=== PATIENT | male | born 1955 | race Hispanic/Latino ===

== ENCOUNTER → 2017-09-25 | Outpatient (CLI) | payer SELFPAY | LOC: LAB.O 09:33 | DX: E11.9 Type 2 diabetes mellitus without complications (principal) ==

== ENCOUNTER 2019-06-22 | Emergency (ER) | payer SELFPAY ==
[2019-06-22] MEDS: FUROSEMIDE INJ 20 MG/2 ML VIAL IV ONE ×2 (00:18→01:26)
[2019-06-22] MEDS: SODIUM CHLORIDE 0.9% (FLUSH) 10 ML SYG IV PRN (00:18)
[2019-06-22] MEDS ORDERED: NITROGLYCERIN 0.4 MG 25 EA TAB SL ONE (00:34)
[2019-06-22] MEDS: NITROGLYCERIN 0.4 MG 25 EA TAB SL ONE ×2 (00:41→01:25)
--- NOTE | 2019-06-22 00:42 | RAD ---
EXAM DESCRIPTION: Chest,1 View CLINICAL HISTORY: 63 years Male sob COMPARISON: October 17, 2014. TECHNIQUE: AP view of the chest was obtained. FINDINGS: Cardiac silhouette is enlarged. Central vessels are increased and indistinct. Interstitial and airspace opacities lung gong bilaterally increased when correlated with the prior study. Small right pleural effusion. No effusion on left. No pneumothorax. IMPRESSION: Enlarged heart with marked pulmonary congestion. Bilateral infiltrates versus pulmonary congestion and interstitial edema. These findings are increased when correlated with the prior study. Electronically signed by: Ingris Reynolds MD 06/22/2019 12:[address] [facility]
--- NOTE | 2019-06-22 01:04 | ED.PDOC ---
History of Present Illness - General Chief Complaint: Respiratory Problem Stated Complaint: trouble breathing, gasping Time Seen by Provider: 06/22/19 00:05 Source: patient - History of Present Illness Initial Comments: 63 yo M who presents for SOB, onset 2 months ago mainly occurring at night when laying flat, however tonight acutely worsened. Pt has hx of DM and HTN, noncompliant for two years. Edema in BLE has been slowly worsening since onset of SOB. Denies f/c, cough, congestion, CP, abd pain, n/v/d, urinary sx. No hx of [place], CHF, COPD. Allergies/Adverse Reactions: Allergies NO KNOWN ALLERGY Allergy (Verified 10/17/14 03:51) Home Medications: Ambulatory Orders Ciprofloxacin [Cipro] 500 mg PO BID #14 tab 12/21/14 Review of Systems - Review of Systems Constitutional: Denies: chills, fever EENTM: States: no symptoms reported Respiratory: States: orthopnea, short of breath. Denies: cough Cardiology: States: edema. Denies: chest pain, palpitations, syncope Gastrointestinal/Abdominal: Denies: abdominal pain, diarrhea, nausea, vomiting Genitourinary: Denies: dysuria, frequency, hematuria Musculoskeletal: Denies: back pain, neck pain Skin: Denies: lesions, rash Neurological: Denies: headache, numbness, weakness Endocrine: Denies: increased thirst, increased urine Hematologic/Lymphatic: Denies: easy bleeding, easy bruising Past Medical History (General) - Patient Medical History Hx Stroke: Yes - about 6months ago, sx, but not dx Hx Congestive Heart Failure: No Hx Hypertension: Yes Hx Diabetes: Yes - not taking meds Hx Renal Disease: Yes - kidney stones Surgical History: no surgical history - Vaccination History Hx Tetanus, Diphtheria Vaccination: No Hx Influenza Vaccination: No Hx Pneumococcal Vaccination: No - Social History Hx Tobacco Use: Yes Hx Alcohol Use: Yes - former Hx Substance Use: No Hx Substance Use Treatment: No Hx Depression: No - Triage Comment ED Triage Comment: Pt came in gasping, trying to breath. Pt is french speaking. Pt spouse reports pt suddenly started gasping for air, he woke her up stating "take me to " Pt could barely speak. Pt reports he has been getting increasingly short of breaths over past few months. Pt reports abd swelling started about a month ago. Pt spouse states pt has not been able to sleep at not, get short of breath when he lays down. Pt is a diabetic, and has HTN, hx kidney stones. Pt has not been taking medications x2 years now. Family Medical History - Family History Mother Family History: Unknown Physical Exam - Physical Exam General Appearance: Alert, Obvious distress, Other - Breathing throgh pursed lips Eyes, Ears, Nose, Throat Exam: PERRL/EOMI, normal ENT inspection Neck: full range of motion, supple Respiratory: respiratory distress, accessory muscle use, rhonchi, other - tachypnea Cardiovascular/Chest: normal peripheral pulses, regular rate, rhythm, no gallop, no murmur, tachycardia Peripheral Pulses: radial,right: 2+, radial,left: 2+ Gastrointestinal/Abdominal: non tender, soft, no organomegaly, no pulsatile mass Extremity: normal range of motion, non-tender, pedal edema - 2+ pitting edema, symmetric BLE Neurologic: no motor/sensory deficits, alert, normal mood/affect, oriented x 3 Skin Exam: normal color, warm/dry Lymphatic: no adenopathy Progress - Progress Progress: 06/22/19 01:10 Discussed with pt and family results and need for transfer, they agree with plan, all questions and concerns addressed. Discussed with Dr. Rushing at [facility] ED, accepts for transfer. Pt is currently doing well on bipap, BP still elevated after one nitro, will give another dose, if needed will escalate to nitro drip. Will also give another 20mg of lasix IV, in addition to 20mg lasix IV pt has already received. Doubt sepsis, sx consistent with volume overload, now in setting of ELTON. Will treat hyperglycemia with insulin. HTN unresolved with second nitro, will start on nitro drip. Nelly Kerr MD Emergency Medicine Physician Billing Number [id number] - Results/Orders Results/Orders: Laboratory Results - last 24 hr 06/22/19 06/22/19 06/22/19 00:20 00:20 00:20 WBC 7.8 RBC 5.09 Hgb 14.2 Hct 41.8 L MCV 82.0 MCH 28.0 MCHC 34.1 RDW 13.5 Plt Count 215 MPV 9.6 Absolute Neuts (auto) 3.90 Absolute Lymphs (auto) 3.00 Absolute Monos (auto) 0.50 Absolute Eos (auto) 0.40 Absolute Basos (auto) 0.00 Neutrophils % 50.1 Lymphocytes % 38.0 Monocytes % 6.5 Eosinophils % 4.8 Basophils % 0.6 PT INR PTT (SP) Sodium 128 L Potassium 3.2 L Chloride 94 L Carbon Dioxide 20 L Anion Gap 17.2 BUN 32 H Creatinine 2.12 H BUN/Creatinine Ratio 15.1 Random Glucose 494 H* Serum Osmolality 285.8 Lactic Acid Calcium 8.6 Total Bilirubin 0.4 AST 52 H ALT 38 Alkaline Phosphatase 139 H Troponin I 0.03 B-Natriuretic Peptide 1860.0 H* Serum Total Protein 7.3 Albumin 3.3 Globulin 4.0 H Albumin/Globulin Ratio 0.8 L Urine Color Urine Appearance Urine pH Ur Specific Jackson Urine Protein Urine Glucose (UA) Urine Ketones Urine Blood Urine Nitrite Urine Bilirubin Urine Urobilinogen Ur Leukocyte Esterase Urine RBC Urine WBC Ur Epithelial Cells Urine Bacteria 06/22/19 06/22/19 06/22/19 00:20 00:20 00:50 WBC RBC Hgb Hct MCV MCH MCHC RDW Plt Count MPV Absolute Neuts (auto) Absolute Lymphs (auto) Absolute Monos (auto) Absolute Eos (auto) Absolute Basos (auto) Neutrophils % Lymphocytes % Monocytes % Eosinophils % Basophils % PT 10.9 INR 1.09 PTT (SP) 24.2 Sodium Potassium Chloride Carbon Dioxide Anion Gap BUN Creatinine BUN/Creatinine Ratio Random Glucose Serum Osmolality Lactic Acid 2.4 H* Calcium Total Bilirubin AST ALT Alkaline Phosphatase Troponin I B-Natriuretic Peptide Serum Total Protein Albumin Globulin Albumin/Globulin Ratio Urine Color Yellow Urine Appearance Clear Urine pH 6.5 Ur Specific Jackson 1.020 Urine Protein >=300 H Urine Glucose (UA) 500 H Urine Ketones Negative Urine Blood Small H Urine Nitrite Negative Urine Bilirubin Negative Urine Urobilinogen 0.2 Ur Leukocyte Esterase Negative Urine RBC 1-3 Urine WBC 0-1 Ur Epithelial Cells 1-3 Urine Bacteria Rare CXR: EXAM DESCRIPTION: Chest,1 View CLINICAL HISTORY: 63 years Male sob COMPARISON: October 17, 2014. TECHNIQUE: AP view of the chest was obtained. FINDINGS: Cardiac silhouette is enlarged. Central vessels are increased and indistinct. Interstitial and airspace opacities lung gong bilaterally increased when correlated with the prior study. Small right pleural effusion. No effusion on left. No pneumothorax. IMPRESSION: Enlarged heart with marked pulmonary congestion. Bilateral infiltrates versus pulmonary congestion and interstitial edema. These findings are increased when correlated with the prior study. Electronically signed by: Ingris Reynolds MD 06/22/2019 12:40 AM [employer]INE [employer] Vital Signs - 24 hr 06/22/19 06/22/19 06/22/19 00:06 00:10 00:15 Temperature 97.4 F L Pulse Rate [ 98 H 115 H left] Respiratory 28 H 28 H 8 L Rate Blood Pressure 271/145 [left] O2 Sat by Pulse 81 L Oximetry 06/22/19 06/22/19 06/22/19 00:16 00:30 01:00 Temperature 97.4 F L Pulse Rate [ 98 H 93 H 88 left] Respiratory 8 L 8 L 20 Rate Blood Pressure 218/119 220/115 200/107 [left] O2 Sat by Pulse 98 98 96 Oximetry 06/22/19 01:12 Temperature Pulse Rate [ 90 left] Respiratory 20 Rate Blood Pressure 219/112 [left] O2 Sat by Pulse 98 Oximetry - EKG/XRAY/CT EKG: Sinus, Tachy, nonspecific ST T wave Chg Comments: nonspecific intraventricular block Departure - Departure Clinical Impression: ELTON (acute kidney injury), Acute respiratory distress, Hyperglycemia Volume overload Qualifiers: Hypervolemia type: unspecified Qualified Code(s): E87.70 - Fluid overload, unspecified Time of Disposition: 01:09 Disposition: Transfer to Hospital Condition: Fair Home Medications: Ambulatory Orders Ciprofloxacin [Cipro] 500 mg PO BID #14 tab 12/21/14
[2019-06-22] MEDS ORDERED: NITROGLYCERIN/D5W IV 250 ML IVS ONE (01:37)
[2019-06-22] MEDS: INSULIN, REG.(HUMAN) 100 U/ML VIAL IV ONE (01:39)
[2019-06-22] MEDS: NITROGLYCERIN/D5W IV 50,000 MCG in PREMIX BOTTLE 1 BOTTLE IVS SCH (01:40)
[2019-06-22 01:43] VITALS: TEMP 97.8
[2019-06-22 02:22] VITALS: BP 207/104; O2SAT 99
== END 2019-06-22 02:23 | disposition short-term general hospital (02) ==
LOC: ER
DX: R06.03 Acute respiratory distress (principal); N17.9 Acute kidney failure, unspecified; E87.70 Fluid overload, unspecified; I45.4 Nonspecific intraventricular block; R00.0 Tachycardia, unspecified; E11.65 Type 2 diabetes mellitus with hyperglycemia; I51.7 Cardiomegaly; I10 Essential (primary) hypertension; Z87.442 Personal history of urinary calculi; Z87.891 Personal history of nicotine dependence
CPT/HCPCS: 36600; 71045; 80053; 81001; 82803; 83605; 83880; 84484; 85025; 85610; 85730; 87040; 87077; 87186; 87205; 93005; 94660; J1940

== ENCOUNTER → 2019-08-04 | Outpatient (CLI) | payer SELFPAY | LOC: YCFC.O 16:17 | PROVIDERS: ATTEND Nurse Practitioner | DX: I10 Essential (primary) hypertension (principal); R53.83 Other fatigue ==

== ENCOUNTER → 2019-09-23 | Outpatient (CLI) | payer SELFPAY | LOC: LAB.O 09-15 14:43 → YCFC.O 15:30 | PROVIDERS: ATTEND Nurse Practitioner | DX: E11.65 Type 2 diabetes mellitus with hyperglycemia (principal); I10 Essential (primary) hypertension ==

== ENCOUNTER → 2019-10-18 | Outpatient (CLI) | payer SELFPAY | DX: N18.4 Chronic kidney disease, stage 4 (severe) (principal) ==

== ENCOUNTER → 2019-12-16 | Outpatient (CLI) | payer SELFPAY | LOC: YCFC.O 13:58 | PROVIDERS: ATTEND Family Medicine | DX: E11.65 Type 2 diabetes mellitus with hyperglycemia (principal); N18.9 Chronic kidney disease, unspecified; D64.9 Anemia, unspecified ==

== ENCOUNTER 2020-05-24 19:52 | Inpatient (IN) | payer SELFPAY ==
[2020-05-24] MEDS ORDERED: MORPHINE SULFATE INJ 10 MG/ML VIAL IV ONE (20:51)
--- NOTE | 2020-05-24 20:53 | RAD ---
EXAM: Chest,1 View CLINICAL INDICATION: Hypoxia COMPARISON: 06/22/2019 FINDINGS: A single view of the chest was obtained. The heart size is mildly enlarged. The pulmonary vascularity is mildly prominent. There are small bilateral pleural effusions and mild bibasilar atelectasis. The lungs are otherwise clear. There is no pneumothorax. IMPRESSION: Findings consistent with mild CHF. Small bilateral pleural effusions. Electronically signed by: Doyle Pascal MD 05/24/2020 8:51 PM CDT
[2020-05-24] MEDS ORDERED: FUROSEMIDE INJ 40 MG/4 ML VIAL IV ONE (21:08)
--- NOTE | 2020-05-24 21:48 | CT ---
EXAM: Chest w/o Contrast CLINICAL INDICATION: Shortness of breath COMPARISON: There is no previous study for comparison. TECHNIQUE: The CT scan was done using contiguous axial 5 mm noncontrast sections through the chest. This exam was performed according to our departmental dose-optimization program, which includes automated exposure control, adjustment of the mA and/or kV according to patient size and/or use of iterative reconstruction technique. FINDINGS: There are no enlarged mediastinal or hilar lymph nodes. Moderate bilateral pleural effusions are noted larger on the right than on the left. Visualized portions of the upper abdominal structures reveal tiny gallstones in the gallbladder, but otherwise are unremarkable. There is moderate dependent atelectasis in both lower lobes greater on the right than on the left as well as mild atelectasis in the right middle lobe. Underlying pneumonia cannot be excluded. A small patch of infiltrate is seen in the peripheral left upper lobe. There is no pneumothorax. IMPRESSION: 1. Moderate bilateral pleural effusions. 2. Areas of airspace opacity in both lungs which may indicate atelectasis and/or pneumonia. 3. Incidentally noted cholelithiasis. Electronically signed by: Doyle Pascal MD 05/24/2020 9:46 PM CDT
[2020-05-24] MEDS ORDERED: METOPROLOL TARTRATE 50 MG TAB PO ONE (22:05)
[2020-05-24] MEDS ORDERED: ISOSORBIDE MONONITRATE (IMDUR) 30 MG TAB PO ONE (22:06)
[2020-05-24] MEDS ORDERED: cefTRIAXone SODIUM 1 GM in SODIUM CHL 0.9% 50ML MIN-BAG+ 50 ML IVPB ONE (22:34)
[2020-05-24] MEDS ORDERED: AZITHROMYCIN IV 500 MG in SODIUM CHLORIDE 0.9% 250ML 250 ML IVPB ONE (22:34)
[2020-05-24] MEDS ORDERED: IPRATROPIUM/ALBUTEROL 3 ML VIAL NEB ONE (22:35)
--- NOTE | 2020-05-24 22:44 | ED.PDOC ---
History of Present Illness - General Chief Complaint: Respiratory Problem Stated Complaint: short of breath, 3-4wks Time Seen by Provider: 05/24/20 19:55 Source: patient Exam Limitations: no limitations - History of Present Illness Initial Comments: The patient is a 64-year-old male presented emergency room secondary to progressive shortness of breath over the last 3 weeks. Mildly productive cough. No definite fever. No chest pain. He is unable to lie back flat and breathes. He shows significant increased work of breathing. Oxygen saturation upon arrival without oxygen was 78%. He denies any history of COPD but does apparently have a history of CHF as well as chronic renal insufficiency. He is also an insulin-dependent diabetic and has had 1 amputation in the past. The patient has apparently seen Dr. Noland in the past for his renal insufficiency. No syncope. No palpitations. Again no chest pain. It is essentially shortness of breath. No runny nose or sore throat. Timing/Duration: constant, getting worse Severity: severe Improving Factors: immobilization Worsening Factors: movement Associated Symptoms: cough, malaise, shortness of breath, weakness Allergies/Adverse Reactions: Allergies NO KNOWN ALLERGY Allergy (Verified 10/17/14 03:51) Home Medications: Ambulatory Orders Amlodipine Benzoate 05/24/20 Amlodipine Besylate 10 mg PO DAILY 05/24/20 Carvedilol 12.5 mg PO BID 05/24/20 Human Insulin Aspart [Novolog] 100 unit SC DAILY 05/24/20 Insulin Detemir [Levemir] 0 unit SUBCU DAILY 05/24/20 Simvastatin 20 mg PO DAILY 05/24/20 Review of Systems - Review of Systems Constitutional: States: malaise EENTM: States: no symptoms reported Respiratory: States: cough, short of breath, wheezing Cardiology: States: no symptoms reported Gastrointestinal/Abdominal: States: no symptoms reported Genitourinary: States: no symptoms reported Musculoskeletal: States: no symptoms reported Skin: States: no symptoms reported Neurological: States: anxiety Endocrine: States: no symptoms reported All other Systems: No Change from Baseline Past Medical History (General) - Patient Medical History Hx Stroke: Yes - about 6months ago, sx, but not dx Hx Congestive Heart Failure: Yes - per pt description "fluid around heart" Hx Hypertension: Yes Hx Diabetes: Yes Hx Renal Disease: Yes - kidney stones Surgical History: other - Vaccination History Hx Tetanus, Diphtheria Vaccination: No Hx Influenza Vaccination: Yes Hx Pneumococcal Vaccination: No - Social History Hx Tobacco Use: Yes Hx Alcohol Use: No Hx Substance Use: No Hx Substance Use Treatment: No Hx Depression: No Family Medical History - Family History Mother Family History: Unknown Physical Exam - Physical Exam General Appearance: Alert, Other - The patient is obviously in acute respiratory distress upon arrival. Eye Exam: bilateral normal Ears, Nose, Throat: hearing grossly normal, normal pharynx, other - Nasal flaring Neck: full range of motion, supple - JVD is visible Respiratory: respiratory distress, accessory muscle use, rhonchi, wheezing Cardiovascular/Chest: normal peripheral pulses, regular rate, rhythm, no edema Peripheral Pulses: radial,right: 2+, radial,left: 2+ Gastrointestinal/Abdominal: soft, other - Protuberant abdomen. Suspect at least a small amount of ascites. No rebound or peritoneal signs. 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, alert, normal mood/affect - The patient is obviously anxious, oriented x 3, other - Patient does have chronic peripheral neuropathy Skin Exam: normal color Comments: Vital Signs - 24 hr 05/24/20 05/24/20 05/24/20 20:00 20:20 20:50 Temperature 97.7 F Pulse Rate 80 Pulse Rate [ 85 72 81 left] Respiratory 34 H 30 H 28 H Rate Blood Pressure 180/92 175/106 [Right Arm] O2 Sat by Pulse 83 L 92 L Oximetry 05/24/20 05/24/20 21:00 22:29 Temperature Pulse Rate Pulse Rate [ 83 77 left] Respiratory 20 20 Rate Blood Pressure 189/85 176/79 [Right Arm] O2 Sat by Pulse 92 L 96 Oximetry Progress - Progress Progress: 05/24/20 22:47 The patient is a 64-year-old male presented emergency room in respiratory distress secondary to what is most likely primarily a CHF exacerbation with possible underlying pneumonia. The patient is an insulin- dependent diabetic and does have chronic renal insufficiency. He will have to be diuresed carefully. Due to the respiratory distress, the decision was made to perform a thoracentesis on the larger right pleural effusion. Risk and benefits were explained and patient agreed to proceed. Area was prepped with chlorhexidine and the sheath catheter was entered into the intercostal space after auscultation. We obtained about 80 cc through the syringe however the catheter failed to allow withdrawal of any more fluid. The catheter was removed and an 18-gauge needle was inserted which did allow for drainage of the serous fluid in total but approximately 1000 cc which will be sent for cytology and culture. Vaseline gauze was placed at the site followed by sponge tape. Patient tolerated procedure well and is breathing more easily afterwards. Chest x-ray will will be repeated in 1/2-hour. Blood and sputum cultures are being done. The patient is being started on Rocephin and azithromycin. He is also receiving a nebulizer treatment. Due to the continued hypotension the patient received doses of oral metoprolol and oral Imdur. Blood pressures are already coming down. The patient does have an elevated D-dimer however that is most likely due to the renal insufficiency. Echocardiogram on the patient in the near future may be beneficial. Admitting for continued care of the CHF ex acerbation and pneumonia. The patient tested negative for coronavirus. Critical care time spent on this patient is 40 minutes. clyde william [id number] - Results/Orders Results/Orders: Chest x-ray shows bilateral effusions as well as cephalization and cardiomegaly. CT scan corresponds with the above x-ray. He does have moderate to large effusions with the 1 on the right greater than the left. Possible underlying infiltrates. EKG shows normal sinus rhythm 83 bpm. Normal R wave progression. Right bundle branch block. Mild right axis deviation. Prolonged QT interval. Likely left posterior fascicular block as well. Inverted T waves and inferior leads. Laboratory Tests 05/24/20 05/24/20 05/24/20 20:20 20:20 20:20 WBC 7.3 RBC 3.99 L Hgb 10.8 L Hct 31.9 L MCV 80.0 MCH 27.0 MCHC 33.7 RDW 17.6 H Plt Count 233 MPV 8.9 Absolute Neuts (auto) 5.60 Absolute Lymphs (auto) 0.90 L Absolute Monos (auto) 0.60 Absolute Eos (auto) 0.20 Absolute Basos (auto) 0.00 Neutrophils % 77.1 Lymphocytes % 12.0 L Monocytes % 7.5 Eosinophils % 3.0 Basophils % 0.4 PT 12.8 H INR 1.29 H PTT (SP) 28.8 D-Dimer, Quantitative 1360.0 H* pCO2 pO2 HCO3 ABG pH ABG O2 Saturation ABG Base Excess ABG Deoxyhemoglobin Oxyhemoglobin % Carboxyhemoglobin % Methemoglobin % Sat Calc Total Hemoglobin Sodium 137 Potassium 4.6 Chloride 107 Carbon Dioxide 21 Anion Gap 13.6 BUN 39 H Creatinine 3.00 H BUN/Creatinine Ratio 13.0 Random Glucose 165 H Serum Osmolality 286.9 Lactic Acid Calcium 8.2 L Magnesium 2.5 Total Bilirubin 0.6 AST 22 ALT 19 Alkaline Phosphatase 93 Creatine Kinase 160 CK-MB (CK-2) 6.5 H* CK-MB (CK-2) % Not Reportable Troponin I < 0.02 B-Natriuretic Peptide 4130.0 H* Serum Total Protein 7.8 Albumin 3.4 Globulin 4.4 H Albumin/Globulin Ratio 0.8 L Amylase 34 Lipase 26 TSH 1.43 05/24/20 05/24/20 20:20 20:36 WBC RBC Hgb Hct MCV MCH MCHC RDW Plt Count MPV Absolute Neuts (auto) Absolute Lymphs (auto) Absolute Monos (auto) Absolute Eos (auto) Absolute Basos (auto) Neutrophils % Lymphocytes % Monocytes % Eosinophils % Basophils % PT INR PTT (SP) D-Dimer, Quantitative pCO2 43 pO2 69 L HCO3 22.2 ABG pH 7.318 L ABG O2 Saturation 92.7 L ABG Base Excess -3.8 ABG Deoxyhemoglobin 7.1 H Oxyhemoglobin % 90.6 L Carboxyhemoglobin % 1.6 H Methemoglobin % Sat 0.7 Calc Total Hemoglobin 10.5 L Sodium Potassium Chloride Carbon Dioxide Anion Gap BUN Creatinine BUN/Creatinine Ratio Random Glucose Serum Osmolality Lactic Acid 0.9 Calcium Magnesium Total Bilirubin AST ALT Alkaline Phosphatase Creatine Kinase CK-MB (CK-2) CK-MB (CK-2) % Troponin I B-Natriuretic Peptide Serum Total Protein Albumin Globulin Albumin/Globulin Ratio Amylase Lipase TSH Departure - Departure Clinical Impression: Multifocal pneumonia, Respiratory distress, Chronic renal failure, stage 4 (severe) Acute exacerbation of CHF (congestive heart failure) Qualifiers: Heart failure type: unspecified Qualified Code(s): I50.9 - Heart failure, unspecified Disposition: Admit Patient Departure Forms: ED Discharge - Pt. Copy, Patient Portal Self Enrollment Referrals: Elisabeth Pettit FNP [Primary Care Provider] - 1-2 Weeks Home Medications: Ambulatory Orders Amlodipine Benzoate 05/24/20 Amlodipine Besylate 10 mg PO DAILY 05/24/20 Carvedilol 12.5 mg PO BID 05/24/20 Human Insulin Aspart [Novolog] 100 unit SC DAILY 05/24/20 Insulin Detemir [Levemir] 0 unit SUBCU DAILY 05/24/20 Simvastatin 20 mg PO DAILY 05/24/20 Decision To Admit - Decistion To Admit Decision to Admit Reason: Medical Nature Decision to Admit Date: 05/24/20 Decision to Admit Time: 22:51
--- NOTE | 2020-05-25 00:12 | RAD ---
EXAMINATION: Chest,1 View CLINICAL HISTORY: post thoracentesis on right COMPARISON: May 24, 2020 8:25 PM FINDINGS: The heart size is again seen to be mildly enlarged however unchanged. Again seen is mild prominence of the pulmonary vasculature. There are small bilateral pleural effusions significantly decreased on the right presumably secondary to the reported history of recent thoracentesis.. IMPRESSION: Decreased right pleural effusion. Otherwise no significant change. Electronically signed by: Margret Brunson MD 05/25/2020 12:10 AM CDT
[2020-05-25] MEDS ORDERED: SODIUM CHLORIDE 0.9% (FLUSH) 10 ML SYG IV PRN (00:38)
[2020-05-25] MEDS ORDERED: GLUCAGON INJ 1 MG VIAL SUBCU PRN (00:38)
[2020-05-25] MEDS ORDERED: MAGNESIUM HYDROXIDE 30 ML UD PO PRN (00:38)
[2020-05-25] MEDS ORDERED: DEXTROSE 50% 25 GM/50 ML SYG IV PRN (00:38)
[2020-05-25] MEDS ORDERED: ONDANSETRON INJ 4 MG/2 ML VIAL IV PRN (00:38)
[2020-05-25] MEDS ORDERED: MORPHINE SULFATE INJ 10 MG/ML VIAL IV PRN (00:38)
[2020-05-25] MEDS ORDERED: ALBUTEROL SULFATE 2.5 MG/3 ML VIAL NEB PRN (00:38)
[2020-05-25] MEDS ORDERED: NITROGLYCERIN 0.4 MG 25 EA TAB SL PRN (00:38)
[2020-05-25] MEDS ORDERED: ENOXAPARIN SODIUM 80 MG/0.8 ML SYG SUBCU ONE (00:46)
[2020-05-25] MEDS: IV SET AND CAP CHANGE INJ INJ SCH (01:01)
--- NOTE | 2020-05-25 06:34 | RAD ---
EXAM: XR Chest, 1 View CLINICAL HISTORY: The patient is 64 years old and is Male; chf w/ plueral effusion, possible PNA TECHNIQUE: Single view of the chest. COMPARISON: May 24, 2020 11:49 PM. FINDINGS: Lungs: Bibasilar infiltrates and/or subsegmental atelectasis again noted. Pleural space: 8 to 9 mm right apical pneumothorax. No significant pleural fluid. Heart: The cardiac silhouette is enlarged versus artifact of AP technique. Cardiomediastinal silhouette is not significantly changed given the differences in technique. Mediastinum: See above. Bones/joints: The bones and joints are unchanged as visualized. Upper abdomen: No free air in the visualized upper abdomen. IMPRESSION: 1. 8 to 9 mm right apical pneumothorax. 2. Bibasilar infiltrates and/or subsegmental atelectasis again noted. Electronically signed by: Odessa Ayala MD 05/25/2020 6:32 AM CDT
[2020-05-25] MEDS: INSULIN LISPRO 100 UNITS/ML PEN SUBCU SCH ×4 (07:22→21:21)
[2020-05-25] MEDS ORDERED: amLODIPine BESYLATE 5 MG TAB ONE (08:45)
[2020-05-25] MEDS ORDERED: SIMVASTATIN 20 MG TAB ONE ×2 (08:45→18:51)
[2020-05-25] MEDS: ALBUTEROL SULFATE 2.5 MG/3 ML VIAL NEB SCH ×4 (09:30→20:06)
[2020-05-25] MEDS: amLODIPine BESYLATE 5 MG TAB PO SCH (09:38)
[2020-05-25] MEDS: CARVEDILOL 12.5 MG TAB PO SCH ×2 (09:38→20:32)
--- NOTE | 2020-05-25 10:27 | RAD ---
EXAM DESCRIPTION: Chest,2 Views CLINICAL HISTORY: f/u am xray fpr rt sided pneumo COMPARISON: Chest radiograph same date. TECHNIQUE: PA/lateral FINDINGS/IMPRESSION: The right apical pneumothorax may be stable to slightly increased in size (occupying approximately 10-15% right lung volume). No mediastinal shift to suggest tension pneumothorax. Small volume right sided pleural effusion has increased. Central pulmonary vascular congestion with suggestion of mild interstitial pulmonary edema. The heart is at the upper limits of normal in size. The aortic knob is partially calcified. No acute osseous abnormality. Electronically signed by: Abram Mulligan DO 05/25/2020 10:25 AM CDT
[2020-05-25] MEDS: FUROSEMIDE INJ 40 MG/4 ML VIAL IV SCH ×2 (10:54→17:18)
[2020-05-25] MEDS: NITROGLYCERIN 0.4 MG/HR PATCH TOP SCH (10:54)
--- NOTE | 2020-05-25 11:21 | HP ---
SUPERVISING PHYSICIAN: Mukul Tomas MD CHIEF COMPLAINT: Shortness of breath for 3 to 4 weeks. HISTORY OF PRESENT ILLNESS: Mr. Garcia is a 64 year-old male who presented to the Emergency Room last night for progressive shortness of breath over the last 3 weeks. He has also had a mildly productive cough but no definite fever, no actual chest pains. He endorses he is unable to lie flat on his back, this increases his shortness of breath. His initial oxygen saturation on arrival in in the Emergency Room was 78% and that is without oxygen. He denies any actual history of chronic obstructive pulmonary disease but apparently has been diagnosed with congestive heart failure as well as chronic renal failure and renal insufficiency in the past. He also has a significant history of diabetes mellitus type 2 with a recent amputation of his left lower extremity below the knee due to diabetic complications and a documentation ulcer. His initial workup in the Emergency Room showed he had a normal white count at 7,300 without a left shift. His hemoglobin 10.8, hematocrit 31.9. Coagulation studies did show D-dimer 1360. Blood gas analysis showed he had uncompensated respiratory acidosis with a pH of 7.31 with PC02 of 43, mild hypoxemia with P02 of 69. Bicarb 22. Oxygen saturations on 2 liter nasal cannula was 92%. Chemistries showed BNP elevated at 4130 but creatinine level was 3.0. Review of his past records show his creatinine runs around 2.5, BUN 39, troponin less than 0.02. TSH, lipase and amylase were normal. Liver enzymes were within normal limits. Chest x-ray initially in the Emergency Room showed bilateral pleural effusions. This was followed up with CT of the chest and per radiology interpretation showed moderate bilateral pleural effusions with some area of airspace opacities in both lungs which could indicate atelectasis and/or pneumonia with incidental finding of cholelithiasis. His respiratory swab for Covid-19 was negative as well as all other bacterial and viral targets. Vital signs in the Emergency Room initially showed his oxygen saturation 93% with respirations of 34, blood pressure 180/92, he was afebrile at 97.7 with pulse of 85. The findings clinically and CT findings of a pleural effusion on the right, Dr. Harrington, emergency room physician physician, performed a right-sided thoracentesis with resulting 1,000 cc pleural fluid that was noted to be serous in nature and was sent for cytology and cultures. After thoracentesis, the patient's respiratory effort was much decreased but given clinical findings and labs, the patient is going to be admitted now for management of possible congestive heart failure exacerbation with acute on chronic renal failure with possible underlying community acquired pneumonia bilaterally. The patient was started on antibiotics in the Emergency Room. His initial lactic acid was normal at 0.9, repeat prior to admission was 1.0. He was admitted in stable condition. PAST MEDICAL HISTORY: 1. Diabetes mellitus type 2, poorly controlled. 2. Hyperlipidemia. 3. Hypertension. 4. Congestive heart failure first diagnosed in 2018 with no current echocardiogram available at time of review. 5. Chronic renal failure diagnosed in 2019. 6. History of alcohol abuse. PAST SURGICAL HISTORY: 1. Left below-knee amputation in 2019. CURRENT MEDICATIONS: 1. Labetalol 12.5 mg b.i.d. 2. Amlodipine 10 mg daily. 3. Simvastatin 20 mg daily. 4. Levemir daily. 5. NovoLog sliding scale. ALLERGIES: NO KNOWN DRUG ALLERGIES. FAMILY HISTORY: Noncontributory. SOCIAL HISTORY: Past history of smoking but quit many years previous as well as has a history of alcohol abuse but has quit multiple years previous to admission. He is disabled. He is , he lives in [place]. He denied any illicit drug use. REVIEW OF SYSTEMS: CONSTITUTIONAL: Positive for general malaise, denies fevers, chills, HEENT: Denies headaches. vision changes, sore throat. nasal congestion. CHEST: As noted in history of present illness, significant for coughing,shortness of breath, wheezing. HEART: Denies actual chest pain, palpitations, or syncopal episodes. ABDOMEN: Denies nausea, vomiting, diarrhea or constipation. GENITOURINARY: Denies dysuria, hematuria or polyuria. MUSCULOSKELETAL: Denies arthralgias, joint swelling. SKIN: Denies lesions, rashes, moles or unexplained changes. NEUROLOGIC: He does have some anxiety but denies ataxia other than associated with recent amputation of his left lower extremity. No other focal or motor deficits. Denies seizures.. HEMATOLOGICAL: Denies unexplained bleeding, easy bruising or transfusion reactions. PHYSICAL EXAMINATION: VITAL SIGNS: Initially in the Emergency Room shows temperature 97.7, pulse 85, blood pressure 180/92, respirations 34 with oxygen saturation 82% on room air after thoracentesis. On admission to the medical/surgical floor, the patient's temperature was 97.8, pulse 73, blood pressure 137/77, respirations 20, oxygen saturation 99% on 4 liters nasal cannula. GENERAL: The patient on admission to the medical/surgical floor did not look to be in any obvious distress, was resting comfortably. He was alert. HEENT: Tympanic membranes are clear bilaterally. Oropharynx is pink, moist, without any lesions. NECK: Supple, nontender, full range of motion, no obvious jugular venous distention noted. CHEST: Lung sounds were diminished bilaterally towards the bases with some mild rhonchi heard throughout but no wheezing or rales. CARDIOVASCULAR: Regular rate and rhythm without appreciable murmurs, rubs, or gallops. ABDOMEN: Obese, soft, nontender, positive bowel sounds. RECTAL: Exam deferred. BACK: Without any CVA or vertebral tenderness. EXTREMITIES: Left lower extremity amputation. no other notable cyanosis or clubbing. NEUROLOGIC: Cranial nerves II through XII are grossly intact. Facial features were symmetrical. Extraocular movements within normal limits. There was no notable nystagmus. He was alert and oriented x 3. SKIN: Warm, pink and dry. LABORATORY: CBC showed a white count of 7,300 initially with hemoglobin 10.8, hematocrit 31.9, platelet count 233,000, differential showed to be without a left shift. Chemistries did show an elevated D-dimer of 1360 with PTT 12.8, INR 1.29. Blood gas analysis showed pH 7.318 with PC02 of 43, P02 of 69, bicarb 22, oxygen saturations on 3 liter nasal cannula was 92%. Chemistries showed normal electrolytes. Creatinine elevated at 3, BUN 39, potassium normal at 4.6. Lactic acid in the Emergency Room was 0.9, repeat 2 hours prior to admission was 1.0, calcium 8.2 corrected to 8.3 with albumin 3.4, magnesium 2.5. Liver functions within normal limits. Troponin less than 0.02, BNP elevated at 4130. TSH, lipase and amylase all normal. Urinalysis was pending. MICROBIOLOGY: Pleural fluid cultures pending. Blood cultures pending. Respiratory panel was normal for all bacterial and viral antigens as tested. RADIOLOGY: CT of the chest per radiology interpretation showed moderate bilateral pleural effusions with an area of airspace opacity in both lungs which could indicate atelectasis and/or pneumonia and with incidental noted finding of cholelithiasis. Repeat chest x-ray after initial thoracentesis in the Emergency Room showed decreased right pleural effusion, otherwise not significant changes. ASSESSMENT: 1. Acute on chronic congestive heart failure likely diastolic with a large pleural effusion, etiology uncertain at this point, pending echocardiogram with the patient status post thoracentesis. 2. Respiratory distress secondary to large pleural effusion showing improvement with initial thoracentesis. 3. Uncontrolled hypertension. 4. Uncontrolled diabetes mellitus type 2 and recent amputation of left below- knee amputation. 5. Elevated D-dimer, etiology uncertain, possibly related to underlying pleural effusion. 6. Acute on chronic renal failure, likely exacerbated by congestive heart failure. 7. Chronic obstructive pulmonary disease with exacerbation secondary to #1 and likely exacerbated as well by probable community acquired pneumonia. PLAN: The patient is going to be admitted for underlying treatment of pleural effusion, close monitoring for the thoracentesis to be sure he has no complications postprocedure. He also was started on antibiotics which will be continued for concerns for possibly developing community acquired pneumonia. He will be on Lovenox given he had a D-dimer that was elevated, not sure of etiology at this point but will go ahead and put him on 80 mg daily based off his renal function. I did talk to Dr. Noland, he agrees with starting him on some Lasix initially to see how he does with his creatinine and wait on echocardiogram findings. We will work to control his blood pressure and watch his I&Os closely as well as put him on fluid restriction of 1500 cc for 24 hours. I would anticipate his length of stay to be at least 2 to 3 days. He will be on sliding scale per insulin protocol. Until we can transition him to outpatient management, we will continue to monitor and treat as needed. [facility][id number] [facility]
[2020-05-25] MEDS ORDERED: cloNIDine HCL 0.1 MG TAB ONE (13:57)
[2020-05-25] MEDS ORDERED: cloNIDine HCL 0.1 MG TAB PO ONE (14:19)
--- NOTE | 2020-05-25 15:19 | CT ---
EXAM DESCRIPTION: Abdoment/Pelvis w/o Contrast CLINICAL HISTORY: 64 years Male, right side pleural effusion; cholelithiasis TECHNIQUE: This exam was performed according to our departmental dose-optimization program, which includes automated exposure control, adjustment of the mA and/or kV according to patient size and/or use of iterative reconstruction technique. COMPARISON: 12/21/2014 FINDINGS: Redemonstrated right-sided pneumothorax. Moderate bilateral pleural effusions with adjacent airspace disease. Evaluation limited by lack of intravenous contrast. The contours of the liver, gallbladder, spleen, pancreas and adrenal glands are unremarkable. Cholelithiasis. Normal renal contours. No hydronephrosis. No urolithiasis. Bladder wall thickening with perivesicular fat stranding. Scattered colonic diverticula without focal inflammatory change. No evidence of bowel obstruction. No findings to suggest appendicitis. Normal appendix. No adenopathy. No focal fluid collection. No free air. Normal caliber abdominal aorta. Moderate diffuse atherosclerotic disease. No acute or suspicious osseous abnormality. Scattered degenerative changes present. Bilateral L5 pars defects. IMPRESSION: 1. Redemonstrated small right pneumothorax. 2. Moderate bilateral pleural effusions with adjacent atelectasis/consolidation. 3. Cholelithiasis. 4. Bladder wall thickening with perivesicular fat stranding. Recommend correlation with urinalysis. Electronically signed by: Matt Villarreal MD 05/25/2020 3:17 PM CDT
[2020-05-25] MEDS ORDERED: AZITHROMYCIN IV 500 MG VIAL IVPB ONE (18:51)
[2020-05-25] MEDS ORDERED: SODIUM CHL 0.9% 50ML MIN-BAG+ 50 ML IVPB ONE (18:51)
[2020-05-25] MEDS ORDERED: SODIUM CHLORIDE 0.9% 250ML 250 ML ONE (18:51)
[2020-05-25] MEDS ORDERED: cefTRIAXone SODIUM 1 GM VIAL ONE (18:51)
[2020-05-25] MEDS: ENOXAPARIN SODIUM 80 MG/0.8 ML SYG SUBCU SCH (20:32)
[2020-05-25] MEDS: SIMVASTATIN 20 MG TAB PO SCH (20:32)
[2020-05-25] MEDS: cefTRIAXone SODIUM 1 GM in SODIUM CHL 0.9% 50ML MIN-BAG+ 50 ML IVPB SCH (20:32)
[2020-05-25] MEDS: REMOVE OLD PATCH TOP SCH (20:48)
[2020-05-25] MEDS: AZITHROMYCIN IV 500 MG in SODIUM CHLORIDE 0.9% 250ML 250 ML IVPB SCH (21:30)
--- NOTE | 2020-05-26 05:12 | RAD ---
EXAM DESCRIPTION: Chest,1 View CLINICAL HISTORY: f/u rt side pneumo COMPARISON: Chest x-ray 05/25/2020 FINDINGS: Cardiac silhouette is enlarged. There are diffuse pulmonary infiltrates bilaterally which may represent mild interstitial pulmonary edema. There is a trace/residual right apical pneumothorax which appears smaller compared to the prior exam. There is no acute osseous process visualized. IMPRESSION: Trace/residual right apical pneumothorax which appears smaller compared to the prior exam Diffuse pulmonary infiltrates bilaterally which may represent mild interstitial pulmonary edema. Electronically signed by: Nando Arenas MD 05/26/2020 5:11 AM CDT
[2020-05-26] MEDS: INSULIN LISPRO 100 UNITS/ML PEN SUBCU SCH ×4 (07:36→21:11)
--- NOTE | 2020-05-26 08:49 | CONS ---
CONSULTATION/FOLLOWUP NOTE DATE: 05/26/20 REASON FOR CONSULTATION: 1. FOLLOWUP FOR: PNEUMOTHORAX, POST THORACENTESIS. HISTORY OF PRESENT ILLNESS: The patient has been noted to have a pneumothorax approximately 15%, followup from yesterday showed slight increase, it could have been the angle of the film slightly but overnight the patient reportedly did well, slept well, he is on a nonrebreather. He is in no distress and feels comfortable. Repeat x-ray this morning shows slight decrease in the size of the pneumothorax. The patient is stable, otherwise initially has been treated and I will continue to follow. If the pneumothorax becomes more clinically, he could required a chest catheter. #[id number] [facility]
[2020-05-26] MEDS: ALBUTEROL SULFATE 2.5 MG/3 ML VIAL NEB SCH ×4 (09:02→19:43)
[2020-05-26] MEDS: amLODIPine BESYLATE 5 MG TAB PO SCH (09:54)
[2020-05-26] MEDS: NITROGLYCERIN 0.4 MG/HR PATCH TOP SCH (09:54)
[2020-05-26] MEDS: CARVEDILOL 12.5 MG TAB PO SCH ×2 (09:55→20:33)
[2020-05-26] MEDS: FUROSEMIDE INJ 40 MG/4 ML VIAL IV SCH ×2 (09:55→16:09)
--- NOTE | 2020-05-26 12:34 | PN ---
SUPERVISING [id number]: Mukul Tomas MD DATE: 05/26/20 SUBJECTIVE: The patient reported his breathing is much easier, he has had no chest pain. He notes he is a little sleepy but he has no other complaints. OBJECTIVE: VITAL SIGNS: Temperature 98.8,pulse 73, blood pressure 171/73, respirations 20, now oxygen saturation 97% on 2 liters nasal cannula. GENERAL: The patient looks to be resting comfortably, he is in no acute distress. HEART: Regular rate and rhythm. CHEST: Diminished toward the bases. I do not hear any rhonchi or rales today. He does have bilateral excursion of the chest wall, no crepitus. Posterior aspect on the right side, thoracentesis site looks to be having no complications. Dressing is clean and dry. ABDOMEN: Obese, soft, non-tender, positive bowel sounds. EXTREMITIES: No edema. NEUROLOGIC: He is alert and oriented x 3. LABORATORY: White count is at 4,800, hemoglobin is down a little bit to 8.7, hematocrit 26.0, platelet count 162,000, differential shows to be without a left shift. Chemistries show normal electrolytes. Creatinine is up a little bit to 3.32. BUN is up to 43, blood sugars range between 86 and 148. Urinalysis is still pending. RADIOLOGY: Abdominal/pelvic CT done yesterday showed again re-demonstrated right small plural pneumothorax and moderate bilateral pleural effusions with adjacent atelectasis and consolidation and again cholelithiasis. No mention of any complications in the gallbladder. Bladder was noted to be thickening with perivesicular fat stranding, Chest x-ray today single-view, shows trace residual right apical pneumothorax which appears smaller compared to previous exam. There is diffuse pulmonary infiltrates bilaterally which may represent interstitial pulmonary edema. ASSESSMENT: 1. Small pneumothorax status post thoracentesis. 2. Acute on chronic congestive heart failure with echocardiogram currently pending. 3. Respiratory distress on admission secondary to large pleural effusion on the right improved with thoracentesis and subsequent development of a small pneumothorax which is resolving. 4. Uncontrolled hypertension. 5. Uncontrolled diabetes mellitus type 2. 6. Elevated D-dimer, etiology uncertain, possibly related to recent left below-knee amputation and underlying pleural effusion with possibly developing community acquired pneumonia. 7. Acute on chronic renal failure with some exacerbation form diuresis. 8. Chronic obstructive pulmonary disease with exacerbation secondary to #1 and probable community acquired pneumonia with noted hypoxia on admission. PLAN: Will continue with current plan of care at this point with coverage for community acquired pneumonia with antibiotics with Rocephin, azithromycin. In regard to his congestive heart failure, we will wait for the results of his echocardiogram but will continue with fairly aggressive treatment with diuretics. He is on a beta estrada, he is not a candidate for humaira inhibitor due to his renal insufficiency. I did talk with Dr. Noland in regard to his creatinine and he is fine with the current plan of care at this point. He does remain on fluid restrictions. He is on DVT prophylaxis, he had 80 mg every 24 hours given that he does have an elevated D-dimer and unable to fully rule out a possible pulmonary embolism. His blood pressure is staying pretty stable, will continue with Nitro patch and probably transition him to a long-acting Nitro but will wait to see what his ejection fraction shows on the echocardiogram. Dr. Richardson is still following the patient in regard to the pneumothorax which seems to be stabilized and actually decreasing. I would anticipate he probably won't discharge at least until Thursday given the underlying pneumothorax and the large pleural effusion till pending those results on the cell count and cultures. We will continue with sliding scale insulin. He is on aggressive pulmonary hygiene in regard to breathing treatments we will hold off on any pressure-related treatments, to not exacerbate the pneumothorax. Until we can transition patient to outpatient management, we will continue to monitor and treat as needed. [facility][id number] [facility]
[2020-05-26] MEDS ORDERED: ENOXAPARIN SODIUM 80 MG/0.8 ML SYG SUBCU ONE (19:09)
[2020-05-26] MEDS: cefTRIAXone SODIUM 1 GM in SODIUM CHL 0.9% 50ML MIN-BAG+ 50 ML IVPB SCH (20:32)
[2020-05-26] MEDS: SIMVASTATIN 20 MG TAB PO SCH (20:33)
[2020-05-26] MEDS: ENOXAPARIN SODIUM 80 MG/0.8 ML SYG SUBCU SCH (20:33)
[2020-05-26] MEDS: REMOVE OLD PATCH TOP SCH (20:42)
[2020-05-26] MEDS: AZITHROMYCIN IV 500 MG in SODIUM CHLORIDE 0.9% 250ML 250 ML IVPB SCH (21:33)
[2020-05-27] MEDS: PANTOPRAZOLE SODIUM IV 40 MG VIAL IV SCH (06:04)
[2020-05-27] MEDS: INSULIN LISPRO 100 UNITS/ML PEN SUBCU SCH ×4 (07:18→21:01)
[2020-05-27] MEDS: ALBUTEROL SULFATE 2.5 MG/3 ML VIAL NEB SCH ×4 (08:16→20:40)
[2020-05-27] MEDS: FUROSEMIDE INJ 40 MG/4 ML VIAL IV SCH ×2 (09:26→17:06)
[2020-05-27] MEDS: amLODIPine BESYLATE 5 MG TAB PO SCH (09:27)
[2020-05-27] MEDS: CARVEDILOL 12.5 MG TAB PO SCH ×2 (09:27→20:46)
[2020-05-27] MEDS: NITROGLYCERIN 0.4 MG/HR PATCH TOP SCH (09:30)
[2020-05-27] MEDS: BIFIDOBACTERIUM INFANTIS 4 MG CAP PO SCH (09:30)
--- NOTE | 2020-05-27 11:23 | RAD ---
PROCEDURE:XR CHEST 1 VIEW HISTORY:f/u on rt side pneumothoraic COMPARISON: May 26, 2020 FINDINGS: The heart is again seen to be enlarged. There is a right-sided pleural effusion with consolidation seen within the right lower lobe. There is cephalization of the pulmonary vascularity. The right-sided pneumothorax has resolved. The osseous structures and soft tissues are normal. IMPRESSION: Right-sided pleural effusion larger than on the prior examination with atelectasis/consolidation within the right lower lobe. Resolution of the pneumothorax within the right upper lobe Stable congestive changes Electronically signed by: Les Marks MD 05/27/2020 11:22 AM CDT
--- NOTE | 2020-05-27 16:55 | PN ---
SUPERVISING [id number]: Mukul Tomas MD DATE: 05/27/20 SUBJECTIVE: The patient is sitting up in bed today. He says his breathing has improved a little bit, he is not quite as short of breath when he sits up. He has had no chest pains. He has a little cough, has been afebrile. No other complaints other than the fact he says like he is not peeing as large a volume as it should be at times. He does not feel like he has had any urgency, just feels like he is not peeing very large volumes. OBJECTIVE: VITAL SIGNS: Pulse 76, blood pressure 164/76, respirations 20, oxygen saturation 95% on 2 liters nasal cannula. GENERAL: The patient looks to be resting comfortably, alert.. HEART: Regular rate and rhythm. CHEST: Lung sounds essentially clear, just a little diminished toward the bases. . ABDOMEN: Obese, soft, non-tender, positive bowel sounds. EXTREMITIES: No edema is noted. NEUROLOGIC: He is alert and oriented x 3. LABORATORY: White count is at 5,600, hemoglobin 9.2, hematocrit 27.5, platelet count 159,000, differential shows to be without a left shift. Chemistries show normal electrolytes. Creatinine is at 3.38. BUN is 42, blood sugars range between 89 and 218. Liver functions within normal limits. Urinalysis showed greater than 300 protein, 100 ketones with large leukoesterase. Microscopic revealed 10 to 20 RBCs, 20 to 30 WBCs with 3+ bacteria. MICROBIOLOGY: Urine culture showed no growth at 24 hours. Body fluid from thoracentesis culture is still pending. Blood cultures remain negative at 48 hours.. RADIOLOGY: Repeat chest x-ray today per radiology interpretation shows right- sided pleural effusion, larger than on previous exam with atelectasis and/or consolidation within the right lower lobe with a resolution of the right pneumothorax in the right upper lobe. Stable congestive changes. ASSESSMENT: 1. Small pneumothorax status post thoracentesis. 2. Acute on chronic congestive heart failure, diastolic, with echocardiogram showing ejection fraction of 60 to 65% with previous large right-sided pleural effusion status post thoracentesis.. 3. Small pneumothorax status post thoracentesis, now resolved without need for a chest tube. 4. Questionable community acquired pneumonia, right lower lobe. 5. Uncontrolled hypertension. 6. Uncontrolled diabetes mellitus type 2. 7. Acute on chronic renal failure with some exacerbation from diuresis pending additional workup including pre and postvoiding study and arterial Doppler studies.. 8. Chronic obstructive pulmonary disease with exacerbation secondary to possible community acquired pneumonia with noted hypoxia on admission. PLAN: Will continue with antibiotics at this point, Rocephin and azithromycin. I did talk with Dr. Noland. He will see the patient tomorrow in the hospital after he gets through with clinic. I will go ahead and do a renal Doppler, arterial Doppler and pre and postvoid so we can have further diagnostic and rule out possibly some postrenal azotemia. Will continue with diuresis at this point with Lasix. Will follow labs as needed. He does remain on DVT prophylaxis given his elevated D-dimer, although unable to do a CT of his chest due to his renal function. He remains on Lovenox 80 [address] every [address] Richardson is following the patient in regard to the pneumothorax and given the large pleural effusion, still waiting on his cytology for further diagnostic workup which he will need continued followup as an outpatient. At some point, he will need consultation or outpatient followup with cardiology. I am concerned that his pleural effusion may be accumulating significantly in amount that he may need another thoracentesis in the near future. At this point, I am still not sure where the origin of the pleural fluid is resulting from it could be that had just severely controlled hypertension but will need further workup as an outpatient. Until we can transition patient to outpatient management, we will continue to monitor and treat as needed. #[id number] [facility]
[2020-05-27] MEDS ORDERED: ENOXAPARIN SODIUM 80 MG/0.8 ML SYG SUBCU ONE (19:21)
[2020-05-27] MEDS: cefTRIAXone SODIUM 1 GM in SODIUM CHL 0.9% 50ML MIN-BAG+ 50 ML IVPB SCH (20:44)
[2020-05-27] MEDS: SIMVASTATIN 20 MG TAB PO SCH (20:46)
[2020-05-27] MEDS: ENOXAPARIN SODIUM 80 MG/0.8 ML SYG SUBCU SCH (20:46)
[2020-05-27] MEDS: REMOVE OLD PATCH TOP SCH (20:49)
[2020-05-27] MEDS: AZITHROMYCIN IV 500 MG in SODIUM CHLORIDE 0.9% 250ML 250 ML IVPB SCH (21:14)
[2020-05-28] MEDS: IV SET AND CAP CHANGE INJ INJ SCH (00:05)
[2020-05-28] MEDS ORDERED: PANTOPRAZOLE SODIUM IV 40 MG VIAL ONE (03:59)
[2020-05-28] MEDS: PANTOPRAZOLE SODIUM IV 40 MG VIAL IV SCH (06:03)
--- NOTE | 2020-05-28 07:11 | RAD ---
EXAM: XR Chest, 1 View CLINICAL HISTORY: The patient is 64 years old and is Male; Onset Chest Pain TECHNIQUE: Frontal view of the chest. COMPARISON: No relevant prior studies available. FINDINGS: Lungs: There is right lower lobe consolidation. There is cephalization of the pulmonary vasculature. Pleural space: There is a right pleural effusion. No pneumothorax. Heart: The heart is enlarged. Mediastinum: Unremarkable. Bones/joints: Unremarkable. IMPRESSION: 1. There is a right pleural effusion. 2. There is right lower lobe consolidation. 3. Pulmonary vascular congestion. Electronically signed by: Nando Arenas MD 05/28/2020 7:10 AM CDT
[2020-05-28] MEDS: ALBUTEROL SULFATE 2.5 MG/3 ML VIAL NEB SCH ×4 (07:43→20:45)
--- NOTE | 2020-05-28 07:58 | CT ---
EXAM: CT Chest Without Intravenous Contrast CLINICAL HISTORY: The patient is 64 years old and is Male; increasing rt pleural effusion vs consolidation TECHNIQUE: Axial computed tomography images of the chest without intravenous contrast. Sagittal and coronal reformatted images were created and reviewed. This CT exam was performed using one or more of the following dose reduction techniques: automated exposure control, adjustment of the mA and/or kV according to patient size, and/or use of iterative reconstruction technique. COMPARISON: Chest CT from 05/24/2020 FINDINGS: ARTIFACTS: The exam is suboptimal secondary to motion artifact. LUNGS: There is near complete atelectasis of the right lower lobe. Milder areas of atelectasis in the right middle and right upper lobe. These areas of atelectasis in the right lung are slightly increased since the prior study. Mild atelectasis also noted in the dependent aspect of the left lower lobe. There is mild interlobular septal thickening which is increased since the prior study. This suggests mild interstitial edema. No discrete lung mass visualized. PLEURAL SPACE: Moderately sized right pleural effusion, which appears slightly increased in size. Small to moderate left pleural effusion. No pneumothorax. HEART: Coronary artery calcifications. No cardiomegaly. No pericardial effusion. BONES/JOINTS: Mild degenerative changes of the spine. No acute fracture visualized. SOFT TISSUES: No significant abnormalities visualized in the superficial soft tissues. VASCULATURE: Atherosclerotic calcifications are noted. No aortic aneurysm. LYMPH NODES: No significant lymph node enlargement. GALLBLADDER AND BILE DUCTS: Cholelithiasis is noted. IMPRESSION: 1. Moderately sized right pleural effusion, which appears slightly increased in size. Small to moderate left pleural effusion is not significantly changed. 2. Interval increase in areas of atelectasis in the right lung. There is near complete collapse of the right lower lobe. 3. Mild interlobular septal thickening in the lungs, suggesting mild interstitial edema. Electronically signed by: Sheridan Pickens MD 05/28/2020 7:56 AM CDT
[2020-05-28] MEDS: INSULIN LISPRO 100 UNITS/ML PEN SUBCU SCH ×4 (09:16→21:12)
[2020-05-28] MEDS: CARVEDILOL 12.5 MG TAB PO SCH ×2 (09:41→20:29)
[2020-05-28] MEDS: FUROSEMIDE INJ 40 MG/4 ML VIAL IV SCH ×2 (09:41→16:48)
[2020-05-28] MEDS: BIFIDOBACTERIUM INFANTIS 4 MG CAP PO SCH (09:41)
[2020-05-28] MEDS: amLODIPine BESYLATE 5 MG TAB PO SCH (09:41)
[2020-05-28] MEDS: NITROGLYCERIN 0.4 MG/HR PATCH TOP SCH (09:42)
--- NOTE | 2020-05-28 11:45 | RAD ---
EXAM DESCRIPTION: Chest,1 View CLINICAL HISTORY: 64 years Male, s/p thoracentesis COMPARISON: Chest radiograph 05/28/2020. CT chest 09/28/2019 and TECHNIQUE: Single view radiograph of the chest. IMPRESSION: Enlarged cardiac silhouette. Markedly improved right pleural effusion status post thoracentesis. There is mild blunting of the right costophrenic angle which may represent residual small right pleural effusion. Question of small left pleural effusion. No pneumothorax. Bibasilar atelectasis. Thoracic spondylosis. Electronically signed by: Michael Mckeon MD 05/28/2020 11:43 AM CDT
--- NOTE | 2020-05-28 15:12 | PN ---
SUPERVISING PHYSICIAN: Raphael Bocanegra MD DATE: 05/28/20 SUBJECTIVE: The patient is sitting up in bed. He has just had pleural fluid drawn by Dr. Richardson and he is breathing easier. We discussed his lab work. At this time, he denies any chest pain or shortness of breath. OBJECTIVE: VITAL SIGNS: Temperature 97.7, heart rate 71, blood pressure 146/76, respiratory rate 20. It had been 30 prior to his tap. O2 saturation is 100% on non-rebreather and 91% on room air. RESPIRATORY: Diminished breath sounds, especially on the right. He is slightly tachypneic with speech. NEUROLOGIC: Awake, alert and oriented times three. LABORATORY: WBCs 5.7, hemoglobin 9.3, hematocrit 27.2. Potassium is slightly low at 3.4 with calcium 7.5. BUN 45, creatinine 3.46. Pleural fluids results are pending. Preliminary blood cultures show no growth after 3 days. Urine culture shows no growth after 48 hours. Chest x-ray shows 1) Right pleural effusion, 2) Right lower lobe consolidation, and 3) Pulmonary vascular congestion. Chest CT shows 1) Moderately sized right pleural effusion which appears slightly increased in size, small to moderate left pleural effusion is not significantly changed. 2) Interval increase in area of atelectasis in the right lung. There is a near complete collapse of the right lower lobe. 3) Mild interlobular septal thickening in the lung suggesting mild interstitial edema. His post pleural centesis chest x-ray shows enlarged cardiac silhouette, markedly improved right pleural effusion status post thoracentesis. There is mild blunting of the right costophrenic angle which may represent residual small right pleural effusion, question of small left pleural effusion. No pneumothorax, bibasilar atelectasis, thoracic spondylosis. All other labs and films have been reviewed via the EMR. ASSESSMENT: 1. Chronic obstructive pulmonary disease with exacerbation secondary to possible community acquired pneumonia with noted hypoxia on admission. 2. Acute on chronic renal failure with exacerbation. 3. Diabetes mellitus, type 2. 4. Right sided pleural effusion status post thoracentesis x2. 5. Small pneumothorax, resolved, that was status post first thoracentesis. 6. Hypertension. 7. Acute on chronic congestive heart failure, diastolic in etiology, with echocardiogram showing 60-65% ejection fraction. PLAN: We will continue present supportive care. He will be NPO at midnight so he can complete his renal Doppler studies as well as ultrasound of his abdomen. We were unable to complete today due to the patient eating his lunch. Dr. Noland, bicycle subassembler, is supposed to consult on the patient sometime today. Dr. Richardson did do a thoracentesis this morning and took about 1.5 liters off. He will need a cardiac consult on discharge as well as a followup with a bicycle subassembler. I have ordered lab for in the morning. We will continue to monitor the patient closely and follow as needed. #[id number] [facility]
--- NOTE | 2020-05-28 17:07 | US ---
EXAM DESCRIPTION: Bladder (accession [id number]), Renal Arteries (accession [id number]): Ultrasound. CLINICAL HISTORY: pre and post voiding COMPARISON: Two-dimensional ultrasound evaluation of the bilateral kidneys on the same visit. TECHNIQUE: Transcutaneous scanning: Grayscale mode. Doppler peak systolic and end-diastolic velocities/measurements of the abdominal aorta, renal arteries, intra renal arteries, and renal veins. FINDINGS: Distal ureters not visualized bilaterally. Urinary bladder was visualized. Prevoid volume 227.5 mL. Post void volume 113.9 mL. Micturition volume 113.6. Wall thickness 1 cm. Color Doppler interrogation of the bladder but showing no uterine jets bilaterally. Aorta diameter (cm): Not measured. PSV (cm/sec): Aorta: 80.1 Right renal artery: 86 Left renal artery: 21.0 EDV (cm/sec): Right renal artery: 0 Left renal artery: 4 Renal veins: Not well seen IVC: Not well seen. Intrarenal RI's: Proximal segmental Right: 0.65 Left: 1.0. Middle segmental Right: 1.0 Left: 1.0. Distal segmental Right: 0.9 Left: 1.0 Renal Aortic Ratio: Right RAR = RRA PSV/Aortic PSV = 86 /80.1= 1.1. Left RAR = LRA PSV/Aortic PSV = 21/80 = 0.26. End Diastolic Ratio: Right EDR = RRA EDV/RRA PSV = 0/86 = not measurable. Left EDR = LRA EDV/LRA PSV = 4/21= 0.19. Other: No calcifications or hydronephrosis. IMPRESSION: 1. Thickened wall of the urinary bladder. Patient voided less than half of initial volume. 2. Bilateral renal aortic ratios are within the normal range. 3. Segmental artery resistive index measurements and end diastolic ratio on the right indicating significant renovascular parenchymal disease bilaterally. Electronically signed by: Benjamin Davidson MD 05/28/2020 5:06 PM CDT
[2020-05-28] MEDS: SIMVASTATIN 20 MG TAB PO SCH (20:29)
[2020-05-28] MEDS: REMOVE OLD PATCH TOP SCH (20:29)
[2020-05-28] MEDS: ENOXAPARIN SODIUM 80 MG/0.8 ML SYG SUBCU SCH (20:29)
[2020-05-28] MEDS: cefTRIAXone SODIUM 1 GM in SODIUM CHL 0.9% 50ML MIN-BAG+ 50 ML IVPB SCH (20:31)
[2020-05-28] MEDS: AZITHROMYCIN IV 500 MG in SODIUM CHLORIDE 0.9% 250ML 250 ML IVPB SCH (21:13)
[2020-05-29] MEDS ORDERED: HALOPERIDOL LACTATE INJ 5 MG/ML VIAL ONE (00:31)
[2020-05-29] MEDS ORDERED: HALOPERIDOL LACTATE INJ 5 MG/ML VIAL IM ONE (00:35)
[2020-05-29] MEDS ORDERED: PANTOPRAZOLE SODIUM TAB 40 MG PO ONE (03:51)
[2020-05-29] MEDS: PANTOPRAZOLE SODIUM TAB 40 MG PO SCH (06:03)
--- NOTE | 2020-05-29 07:17 | RAD ---
EXAM: XR Chest, 1 View CLINICAL HISTORY: pleural effusion TECHNIQUE: Frontal view of the chest. COMPARISON: 05/28/2020 FINDINGS: Lungs: Mild consolidation present in the right lung base likely atelectasis. Pleural space: New small right pleural effusion. Heart: Stable enlarged cardiac shadow. Mediastinum: No abnormality noted. Bones/joints: No osseous destruction or sclerosis noted. IMPRESSION: New small right pleural effusion and right basilar atelectasis. Electronically signed by: Jeannine Diaz MD 05/29/2020 7:16 AM CDT
[2020-05-29] MEDS: ALBUTEROL SULFATE 2.5 MG/3 ML VIAL NEB SCH ×4 (08:07→20:22)
[2020-05-29] MEDS: INSULIN LISPRO 100 UNITS/ML PEN SUBCU SCH ×4 (08:15→21:52)
[2020-05-29] MEDS: BIFIDOBACTERIUM INFANTIS 4 MG CAP PO SCH (08:19)
[2020-05-29] MEDS: FUROSEMIDE INJ 40 MG/4 ML VIAL IV SCH ×2 (08:20→17:11)
[2020-05-29] MEDS: CARVEDILOL 12.5 MG TAB PO SCH ×2 (08:20→21:52)
[2020-05-29] MEDS: amLODIPine BESYLATE 5 MG TAB PO SCH (08:20)
[2020-05-29] MEDS: NITROGLYCERIN 0.4 MG/HR PATCH TOP SCH ×2 (08:20→10:28)
[2020-05-29] MEDS ORDERED: POTASSIUM CHLORIDE 20 MEQ TAB PO ONE (08:55)
--- NOTE | 2020-05-29 10:58 | US ---
EXAM DESCRIPTION: Abdomen,Complete: Ultrasound. CLINICAL HISTORY: 64 years Male ELEVATED LFT'S COMPARISON: None Available. TECHNIQUE: Transabdominal scanning: grayscale and Doppler modes. FINDINGS: Gallbladder: Enlarged since the sludge and small echogenic stones. Larger stone in the neck of the gallbladder measures 1 cm. No fluid around the gallbladder. No wall thickening. 2.6 mm. Non-tender with transducer pressure. Common bile duct: caliber 5.4 mm within normal limits. Liver: normal echogenicity; contour liver capsule smooth where seen. No fluid around the liver. Intrahepatic biliary ducts normal caliber. Doppler hepatopedal flow and normal caliber portal vein 8 mm. Long axis right lobe 16.3 cm. Pancreas: normal size and echogenicity. Duct not seen. Complete abdominal aorta: Normal caliber from the proximal segment to the distal bifurcation.. IVC: visualized and normal caliber. Right kidney: long axis measures 11.1 cm; volume 116 mL.. Cortical echogenicity equal to the liver. Normal cortical thickness. Minimal renal capsule lobulation. No echogenic stones; no hydronephrosis. Left kidney: long axis measures 11.6 cm; volume 197.4 mL.. Cortical echogenicity increased fecal to the liver. Normal cortical thickness. Minimal radial capsular lobulation. No echogenic stones; no hydronephrosis. Spleen: Normal. No focal lesions.. 13.7 cm long axis. Other: None. IMPRESSION: 1. Cholelithiasis and sludge. No wall thickening or fluid. Nontender with transducer pressure. Common bile duct normal caliber. 2. Liver and pancreas unremarkable. Physiologic vascularity. Spleen upper normal limits in size. 3. Bilateral kidneys normal size but with lobular capsules and increased cortical echogenicity equal to the liver. No echogenic stones, no hydronephrosis, no perirenal fluid. Abdominal aorta and IVC normal caliber. Electronically signed by: Benjamin Davidson MD 05/29/2020 10:57 AM CDT
[2020-05-29] MEDS ORDERED: POTASSIUM CHLORIDE 20 MEQ TAB ONE (11:25)
--- NOTE | 2020-05-29 17:29 | PN ---
SUPERVISING PHYSICIAN: Raphael Bocanegra MD DATE: 05/29/20 SUBJECTIVE: The patient is lying up in bed. He said he has been having very little shortness of breath and he does feel better although he is quite week. He denies chest pain, nausea or vomiting. OBJECTIVE: VITAL SIGNS: Temperature 97.8, heart rate 71, blood pressure 164/77, respiratory rate 20. O2 saturation is 94% on 2 liters nasal cannula. RESPIRATORY: Diminished at the bases, but more so on the right than the left. CARDIAC: Regular rate and rhythm. NEUROLOGIC: Awake, alert and oriented times three. LABORATORY: WBCs 4.7, hemoglobin 9, hematocrit 27. Sodium 139, potassium 3.3, chloride 103, calcium 7.9, magnesium 2.1. BUN 52, creatinine 3.69. MICROBIOLOGY: Preliminary blood cultures show no growth after 4 days. Pleural fluid results still pending from both 05/28/20 and 05/24/20. RADIOLOGY: Chest x-ray shows new small right pleural effusion, right basilar atelectasis. Abdominal ultrasound shows 1) Cholelithiasis and sludge. No wall thickening or fluid. Nontender with transducer pressure. Common bile duct normal caliber. 2) Liver and pancreas unremarkable. Physiologic vascularity. Spleen normal, upper normal limits in size. 3) Bilateral kidneys normal size but with lobular capsules and increased cortical echogenicity to the liver. No echogenic stones. No hydronephrosis. No pararenal fluid. Abdominal aorta and IVC normal caliber. Bladder ultrasound and aorto renal ultrasound shows 1) Thickened wall of the urinary bladder. The patient voided less than half of initial volume. 2) Bilateral renal aorta ratios are within normal range. 3) Segmental artery resistive index measurements and end diastolic ratio on the right indicating significant renovascular parenchymal disease bilaterally. All other labs and films have been reviewed via the EMR. ASSESSMENT: 1. Chronic obstructive pulmonary disease with exacerbation secondary to possible community acquired pneumonia with noted hypoxia on admission. 2. Acute on chronic renal failure with exacerbation. 3. Diabetes mellitus, type 2. 4. Right sided pleural effusion status post thoracentesis x2. 5. Small pneumothorax, resolved, that was status post first thoracentesis. 6. Hypertension. 7. Acute on chronic congestive heart failure, diastolic in etiology, with echocardiogram showing 60-65% ejection fraction. 8. Possible bladder outlet syndrome with minimal emptying of the bladder. 9. Renovascular parenchymal disease bilaterally. 10. Cholelithiasis with gallbladder sludge. PLAN: We will continue present supportive care. I will order a chest x-ray for in the morning and if no increase in his pleural effusion, we will hopefully discharge him tomorrow. He will need a pulmonary followup. I did talk to Dr. Richardson and he felt he would not need to see him after discharge, but he does need to be referred to a terrazzo mechanic. He has seen Dr. Noland, systems integrator, in the past and given his renal artery ultrasound and his kidney dysfunction, it is recommended he see a systems integrator. He also may need to see a urologist as to his insufficient emptying of his bladder. The patient will be needing multiple referrals on discharge. #[id number] MTDD
[2020-05-29] MEDS: SIMVASTATIN 20 MG TAB PO SCH (21:52)
[2020-05-29] MEDS: cefTRIAXone SODIUM 1 GM in SODIUM CHL 0.9% 50ML MIN-BAG+ 50 ML IVPB SCH (21:52)
[2020-05-29] MEDS: ENOXAPARIN SODIUM 80 MG/0.8 ML SYG SUBCU SCH (21:53)
[2020-05-29] MEDS: REMOVE OLD PATCH TOP SCH (21:54)
[2020-05-29] MEDS: AZITHROMYCIN IV 500 MG in SODIUM CHLORIDE 0.9% 250ML 250 ML IVPB SCH (22:12)
[2020-05-30] MEDS: PANTOPRAZOLE SODIUM TAB 40 MG PO SCH (06:24)
[2020-05-30] MEDS: INSULIN LISPRO 100 UNITS/ML PEN SUBCU SCH ×2 (07:10→11:45)
[2020-05-30] MEDS: ALBUTEROL SULFATE 2.5 MG/3 ML VIAL NEB SCH ×2 (07:19→12:54)
--- NOTE | 2020-05-30 07:25 | RAD ---
CHEST, ONE VIEW XR CLINICAL HISTORY: pleural effusion COMPARISON: 05/29/2020 TECHNIQUE: AP Chest. FINDINGS: Small right pleural effusion has increased. Right middle and lower lobe airspace opacities with infiltrates. Mild pulmonary vascularity congestion. No pneumothorax. Heart is mildly enlarged. There is minimal left pleural fluid. Bones and soft tissues appear unremarkable. IMPRESSION: 1. Small right pleural effusion has increased. Right middle and lower lobe airspace opacities have also increased. 2. Minimal left pleural fluid. Electronically signed by: Barb Marsh DO 05/30/2020 7:24 AM CDT
[2020-05-30] MEDS: FUROSEMIDE INJ 40 MG/4 ML VIAL IV SCH (08:37)
[2020-05-30] MEDS: CARVEDILOL 12.5 MG TAB PO SCH (08:38)
[2020-05-30] MEDS: amLODIPine BESYLATE 5 MG TAB PO SCH (08:38)
[2020-05-30] MEDS: BIFIDOBACTERIUM INFANTIS 4 MG CAP PO SCH (08:38)
[2020-05-30 09:40] VITALS: O2SAT 98
[2020-05-30] MEDS: NITROGLYCERIN 0.4 MG/HR PATCH TOP SCH (11:46)
[2020-05-30 13:09] VITALS: BP 169/78; TEMP 98.2
[2020-05-30] MEDS ORDERED: INFLUENZA VIRUS VACC (ADULT) 0.5 ML SYG IM ONE (13:55)
--- NOTE | 2020-06-04 11:29 | OP ---
DATE OF PROCEDURE: 05/28/20 PREOPERATIVE DIAGNOSIS: 1. Recurrent right pleural effusion. POSTOPERATIVE DIAGNOSIS: 1. Recurrent right pleural effusion. PROCEDURE: 1. Bedside thoracentesis. SURGEON: Rangel Richardson MD ANESTHESIA: Local. FINDINGS: We got almost 1.5 liters of straw-colored fluid. It was sent for analysis. INDICATION: This man had a thoracentesis a few days ago that presented as uncertain etiology. It is being worked up, but he began having increased oxygen need and a repeat scan showed recurrence of the effusion. It does appear significant and he could benefit from thoracentesis. This was performed at bedside in a sterile fashion using a standard kit, sterile. PROCEDURE: Local anesthesia was instilled over the approximately eighth rib. We then got into the fluid confirming there was good pocket in that area. The thoracentesis catheter was then placed carefully and placed to the bottle and 1.5 liters came out. He tolerated the procedure. It was removed. There was no evidence of bleeding. Post x-ray looked good. #[id number] MTDD
--- NOTE | 2020-06-05 11:56 | DS ---
SUPERVISING PHYSICIAN: Raphael Bocanegra MD ADMISSION DIAGNOSIS: 1. Acute on chronic congestive heart failure likely diastolic with a large pleural effusion, etiology uncertain at this point, pending echocardiogram with the patient status post thoracentesis. 2. Respiratory distress secondary to large pleural effusion showing improvement with initial thoracentesis. 3. Uncontrolled hypertension. 4. Uncontrolled diabetes mellitus type 2 and recent amputation of left below- knee amputation. 5. Elevated D-dimer, etiology uncertain, possibly related to underlying pleural effusion. 6. Acute on chronic renal failure, likely exacerbated by congestive heart failure. 7. Chronic obstructive pulmonary disease with exacerbation secondary to #1 and likely exacerbated as well by probable community acquired pneumonia. DISCHARGE DIAGNOSIS: 1. Chronic obstructive pulmonary disease with exacerbation secondary to possible community acquired pneumonia with noted hypoxia on admission. 2. Acute on chronic renal failure with exacerbation. 3. Diabetes mellitus, type 2. 4. Right sided pleural effusion with testing indicating probably more exudative in nature, status post thoracentesis x2 with etiology uncertain and needing to be followed and worked up as an outpatient. 5. Small pneumothorax, resolved, that was status post first thoracentesis. 6. Hypertension. 7. Acute on chronic congestive heart failure, diastolic in etiology, with echocardiogram showing 60-65% ejection fraction. 8. Possible bladder outlet syndrome with minimal emptying of the bladder. 9. Renovascular parenchymal disease bilaterally. 10. Cholelithiasis with gallbladder sludge. REASON FOR HOSPITALIZATION: Mr. Garcai is a 64 year-old male who presented to the Emergency Room last night for progressive shortness of breath over the last 3 weeks. He has also had a mildly productive cough but no definite fever, no actual chest pains. He endorses he is unable to lie flat on his back, this increases his shortness of breath. His initial oxygen saturation on arrival in in the Emergency Room was 78% and that is without oxygen. He denies any actual history of chronic obstructive pulmonary disease but apparently has been diagnosed with congestive heart failure as well as chronic renal failure and renal insufficiency in the past. He also has a significant history of diabetes mellitus type 2 with a recent amputation of his left lower extremity below the knee due to diabetic complications and a documentation ulcer. His initial workup in the Emergency Room showed he had a normal white count at 7,300 without a left shift. His hemoglobin 10.8, hematocrit 31.9. Coagulation studies did show D-dimer 1360. Blood gas analysis showed he had uncompensated respiratory acidosis with a pH of 7.31 with PC02 of 43, mild hypoxemia with P02 of 69. Bicarb 22. Oxygen saturations on 2 liter nasal cannula was 92%. Chemistries showed BNP elevated at 4130 but creatinine level was 3.0. Review of his past records show his creatinine runs around 2.5, BUN 39, troponin less than 0.02. TSH, lipase and amylase were normal. Liver enzymes were within normal limits. Chest x-ray initially in the Emergency Room showed bilateral pleural effusions. This was followed up with CT of the chest and per radiology interpretation showed moderate bilateral pleural effusions with some area of airspace opacities in both lungs which could indicate atelectasis and/or pneumonia with incidental finding of cholelithiasis. His respiratory swab for COVID-19 was negative as well as all other bacterial and viral targets. Vital signs in the Emergency Room initially showed his oxygen saturation 93% with respirations of 34, blood pressure 180/92, he was afebrile at 97.7 with pulse of 85. The findings clinically and CT findings of a pleural effusion on the right, Dr. Harrington, emergency room physician physician, performed a right-sided thoracentesis with resulting 1,000 cc pleural fluid that was noted to be serous in nature and was sent for cytology and cultures. After thoracentesis, the patient's respiratory effort was much decreased but given clinical findings and labs, the patient is going to be admitted now for management of possible congestive heart failure exacerbation with acute on chronic renal failure with possible underlying community acquired pneumonia bilaterally. The patient was started on antibiotics in the Emergency Room. His initial lactic acid was normal at 0.9, repeat prior to admission was 1.0. He was admitted in stable condition. MEDICAL CONSULTATION: Rangel Richardson MD, surgical. Please see his report for details. LABORATORY: Discharge white count 4,500, hemoglobin 9, hematocrit 26.9. RBC indices indicated microcytic/hypochromic anemia. Platelet count 186. Differential was without a left shift. Coagulation studies did show D-dimer 1360, PT 12.8, PTT 28.8. Blood gas analysis on admission showed pH 7.31, pO2 69, pCO2 43, bicarb 22.2, saturation 92% on room air. Chemistries on date of discharge showed normal electrolytes. Creatinine 3.32. Blood sugars ranged between 92 and 126. Magnesium normal at 2.1. On admission, his BNP was 4130. Initial creatinine was 3.0. Liver functions were all within normal limits. Pleural fluid analysis on 05/28/20 showed 25 to 32 white count, no reds. LDH 575. Fluid was exudative in nature. Glucose in pleural fluid was 178. Pathology report on the pleural fluid obtain in the ER showed negative for malignant cells. There was a small amount of mixed inflammatory and epithelial cells present. Please see that report for details. The second thoracentesis was not sent off for pathology. Urinalysis showed greater than 300 of protein with 100 glucose, large amount of blood. Microscopic revealed 10 to 20 RBCs, 20 WBCs, 3+ bacteria, but his urine culture ultimately did not grow anything. MICROBIOLOGY: Pleural fluid cultures were still pending at time of discharge. Urine culture showed no growth. Aerobic and anaerobic blood cultures were negative. Respiratory panel was negative for all bacterial and viral targets as tested including COVID and influenza. RADIOLOGY: He had multiple radiographic studies including echocardiogram showing a normal left ventricular ejection fraction of approximately 60-65%. The last CT of the chest done on 05/28/20 showed moderated sized right pleural effusion with interval increase in areas of atelectasis in the right lung, near collapse of right lower lobe and some mild interlobular septal thickening in the lungs, suggesting mild interstitial edema. Please see those reports for details. He also had an abdominopelvic CT which re-demonstrated the right small pleural effusion. There were moderate bilateral pleural effusions and cholelithiasis, some bladder wall thickening with perivascular fat stranding. He also had an aortorenal ultrasound and per radiologic interpretation showed along with the bladder, there was thickening of the bladder wall with the patient voiding less half the initial volume. There was note of bilateral renal aortic ratios all within normal range. Segmental artery resistive index measurements and end-diastolic ratio on the right indicated significant renovascular parenchymal disease bilaterally. He had multiple chest x-rays. He also had a CT of the chest on admission. Please see those reports for details. Final chest x-ray on 05/30/20 showed small right pleural effusion that had slightly increased with right middle and lower lobe airspace opacities also increased with minimal left pleural fluid. HOSPITAL COURSE: Mr. Garcia was admitted from the Emergency Room initially for large pleural effusion which was taken off in the ER. He was treated for pneumonia with antibiotics including azithromycin and Rocephin. He was also started on Lovenox. He did reaccumulate the pleural fluid and required a second thoracentesis. This was done by Dr. Richardson. He was showing good clinical improvement, but certainly will need close followup as an outpatient for multiple reasons including renal, cardiovascular and pulmonology as well as family practice. He was found clinically stable on the date of discharge and his vital signs were showing saturation of 98% on 2 liters nasal cannula with respiratory rate 20 and blood pressure 169/78, temperature 98.2. Clinically, he was found to be stable enough to discharge to manage as an outpatient. PLAN: Mr. Garcia was discharged on 05/30/20 with instructions to followup at [facility] on 06/04/20 at 8:10 AM. He is to follow a diabetic diet as tolerated. He is to take his medications as prescribed at discharge includin. Albuterol inhaler q.4h. as needed, #1 inhaler, no refills. 2. Continue antibiotics with cefdinir 200 mg twice daily, #10. 3. Simvastatin 20 mg daily. 4. Carvedilol 12.5 mg twice daily. 5. Amlodipine 10 mg daily. He will need followup appointments with nephrology, pulmonology, cardiology. CONDITION ON DISCHARGE: Stable and improved. DISPOSITION: The patient was discharged home to continue with outpatient management and followup. #[id number] [facility]
== END 2020-05-30 15:45 | disposition home or self-care (01) | DRG 291 ==
LOC: ER 19:52 → OBSVTOIN 23:13 → MS 23:13
PROVIDERS: ADMIT Nurse Practitioner Family; ATTEND Nurse Practitioner Family
PROC: 0W993ZX Drainage of Right Pleural Cavity, Percutaneous Approach, Diagnostic (ICD-10-PCS; principal; 2020-05-28)
DX: I13.0 Hypertensive heart and chronic kidney disease with heart failure and stage 1 through stage 4 chronic kidney disease, or unspecified chronic kidney disease (principal); J18.9 Pneumonia, unspecified organism; E87.2 Acidosis; N17.9 Acute kidney failure, unspecified; J44.1 Chronic obstructive pulmonary disease with (acute) exacerbation; J44.0 Chronic obstructive pulmonary disease with (acute) lower respiratory infection; J95.811 Postprocedural pneumothorax; I50.43 Acute on chronic combined systolic (congestive) and diastolic (congestive) heart failure; R79.89 Other specified abnormal findings of blood chemistry; R09.02 Hypoxemia; E78.5 Hyperlipidemia, unspecified; E11.22 Type 2 diabetes mellitus with diabetic chronic kidney disease; N18.9 Chronic kidney disease, unspecified; Z89.512 Acquired absence of left leg below knee; Z79.4 Long term (current) use of insulin; Z79.899 Other long term (current) drug therapy; Z87.891 Personal history of nicotine dependence; Y84.4 Aspiration of fluid as the cause of abnormal reaction of the patient, or of later complication, without mention of misadventure at the time of the procedure; Y92.230 Patient room in hospital as the place of occurrence of the external cause

== ENCOUNTER 2020-07-14 14:37 | Emergency (ER) | payer SELFPAY ==
[2020-07-14] MEDS ORDERED: DEXTROSE 10% 500ML 500 ML IVS PRN (14:50)
--- NOTE | 2020-07-14 16:10 | CT ---
EXAM: CT head without contrast HISTORY: CONFUSION COMPARISON: None. TECHNIQUE: Head/brain axial images acquired without contrast. Coronal and sagittal reformats created. Exam performed according to departmental dose-optimization program which includes automated exposure control, adjustment of mA and/or kV according to patient size, and/or use of iterative reconstruction technique. FINDINGS: Evaluation more difficult due to patient's motion artifact. No midline shift, mass effect, intracranial hemorrhage, or hydrocephalus. CSF spaces appear overall mildly enlarged likely representing age-appropriate cerebral volume loss. Calcified atherosclerotic intracranial internal carotid and vertebral arteries. Mastoid air cells clear. No skull fracture. Moderate right and marked left maxillary sinus opacification. IMPRESSION: 1. No CT evidence of acute intracranial abnormality. 2. Moderate right and marked left maxillary sinus opacification. This may represent acute or chronic sinusitis. Electronically signed by: Les Mariano MD 07/14/2020 4:09 PM [facility]
--- NOTE | 2020-07-14 16:16 | RAD ---
EXAM: Chest 1 View HISTORY: CONFUSION, HYPOGLYCEMIA, LETHARGY, LOW 02 SAT COMPARISON: Chest 1 View AP 05/30/2020 CT chest 05/28/2020 TECHNIQUE: Chest 1 View AP FINDINGS: Cardiac silhouette partially obscured by surrounding opacity. Heart size otherwise likely within normal limits. Trachea midline. No pneumothorax. Large dense right mid/lower lung/chest opacity. Thoracic spine degenerative disease. IMPRESSION: Worsened appearance from 05/30/2020 Large dense right mid/lower lung/chest opacity. This likely represents large right pleural effusion with underlying atelectasis, consolidation, and/or neoplasm not ruled out. If clinically indicated, then CT chest with contrast may be helpful. Electronically signed by: Les Mariano MD 07/14/2020 4:14 PM [facility]
--- NOTE | 2020-07-14 16:54 | ED.PDOC ---
History of Present Illness - General Chief Complaint: Diabetic Complaint Stated Complaint: Lethargic, unresponsive, low BS Time Seen by Provider: 07/14/20 14:48 Source: EMS - History of Present Illness Initial Comments: PATIENT SENT FROM HOME FOR LOW BLOOD GLUCOSE AND LETHARGY, HE WAS RECENTLY ADMITTED TO THE HOSPITAL FOR PNEUMONIA. Timing/Duration: unsure Severity: severe Improving Factors: other - IMPROVED GLUCOSE IN ROUTE BY EMS AFTER IV D10 Worsening Factors: nothing Associated Symptoms: denies symptoms Allergies/Adverse Reactions: Allergies NO KNOWN ALLERGY Allergy (Verified 07/14/20 15:00) Home Medications: Ambulatory Orders Amlodipine Besylate 10 mg PO DAILY 05/24/20 Carvedilol 12.5 mg PO BID 05/24/20 Simvastatin 20 mg PO DAILY 05/24/20 Albuterol Sulfate [Albuterol Sulfate Hfa] 108 mcg IN Q4HR PRN #1 inhaler 05/30/20 Cefdinir [Omnicef] 300 mg PO BID #10 cap 05/30/20 Human Insulin Aspart [Novolog] 0 unit SUBCU PRN PRN 07/14/20 Insulin Detemir [Levemir] 10 unit SUBCU QPM 07/14/20 Review of Systems - Review of Systems Unable to Obtain Due To: condition, dementia Past Medical History (General) - Patient Medical History Hx Seizures: No Hx Stroke: No Hx Asthma: No Hx of COPD: No Hx Congestive Heart Failure: Yes Hx Pacemaker: No Hx Hypertension: Yes Hx Diabetes: Yes Hx Renal Disease: Yes - kidney stones Hx Cancer: No Hx MRSA: No - Vaccination History Hx Tetanus, Diphtheria Vaccination: No Hx Influenza Vaccination: Yes Hx Pneumococcal Vaccination: No - Social History Hx Tobacco Use: No Hx Alcohol Use: Yes Hx Substance Use: No Hx Substance Use Treatment: No Hx Depression: No Hx Physical Abuse: No Hx Emotional Abuse: No - Female History Patient is a Female of Child Bearing Age (10 -59 yrs old): No Patient : No Family Medical History - Family History Mother Family History: Unknown Physical Exam - Physical Exam General Appearance: Lethargic, Ill Appearing Ears, Nose, Throat: hearing grossly normal, normal ENT inspection, normal pharynx, abnormal TM (R) Neck: non-tender, full range of motion, supple Respiratory: other - DEMINISHED BS ON RIGHT Cardiovascular/Chest: normal peripheral pulses, regular rate, rhythm, no edema, no gallop Gastrointestinal/Abdominal: normal bowel sounds, non tender, soft, no organomegaly Neurologic: other - LEHTARGIC BUT ARROUSABLE Skin Exam: normal color, warm/dry Lymphatic: no adenopathy Progress - Progress Progress: 07/14/20 20:59 PATIENT TREATED APPROX 2 WEEKS AGO FOR EXAC COPD AND PNEUMONIA WITH RIGHT SIDED INFILTRATE AND EXUDATIVE EFFUSION, APPEARS EFFUSION HAS CONTINUED TO ENLARGE AND LIKELY BECOMING ORGANIZED, PRESENTED WITH HYPOGLYCEMIA AND HYPERCARBIA TONIGHT, NO BENEFIT WITH BIPAP, REQUIRED INTUBATION, LOOKING TO [facility] FOR ICU AND PULMONARY MEDICINE SERVICES. ACCEPTED BY DR BLOOM AT [facility]. 07/14/20 21:03 Procedures - Intubation Time of Intubation: 20:40 Tube Size (cm): 7.5 Medications: Succinylcholine, Versed Breath Sounds after Intubation: equal Intubation Complications: no complications Post Intubation Xray: Yes Progress/Xray Impression: GOOD PLACMENT ON CXR, PLACED ON VENTILATOR, ABG ORDERED. 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 Copy, Patient Portal Self Enrollment Instructions: DI for Diabetes Type 2 Referrals: Elisabeth Pettit FNP [Primary Care Provider] - 1-2 Weeks Home Medications: Ambulatory Orders Amlodipine Besylate 10 mg PO DAILY 05/24/20 Carvedilol 12.5 mg PO BID 05/24/20 Simvastatin 20 mg PO DAILY 05/24/20 Albuterol Sulfate [Albuterol Sulfate Hfa] 108 mcg IN Q4HR PRN #1 inhaler 05/30/20 Cefdinir [Omnicef] 300 mg PO BID #10 cap 05/30/20 Human Insulin Aspart [Novolog] 0 unit SUBCU PRN PRN 07/14/20 Insulin Detemir [Levemir] 10 unit SUBCU QPM 07/14/20
--- NOTE | 2020-07-14 17:08 | CT ---
EXAM DESCRIPTION: Chest w/o Contrast CLINICAL HISTORY: RIGHT LUNG MASS COMPARISON: May 28, 2020 TECHNIQUE: Contiguous axial images of the chest were obtained from the thoracic inlet up to the upper abdomen followed by reconstruction images. This exam was performed according to our departmental dose-optimization program, which includes automated exposure control, adjustment of the mA and/or kV according to patient size and/or use of iterative reconstruction technique. FINDINGS: There is a loculated moderate to large right pleural fluid collection, unchanged compared with the prior exam. Abnormal opacity within the right lung may represent atelectasis. Smaller left pleural fluid collection is again visualized. Increased opacity in the dependent portion of the left lung may represent atelectasis. There is atherosclerosis. There is stranding of the subcutaneous fat at the right chest wall which could be secondary to an infectious process. There is no pneumothorax. The gallbladder is distended. There are calcifications within the dependent portion of the gallbladder compatible with gallstones. There is a small amount of fluid adjacent to the liver and spleen. IMPRESSION: Redemonstration of a loculated right pleural fluid collection with areas of abnormal attenuation in the right lung which could represent atelectasis. Redemonstration of a smaller left pleural fluid collection also noted. Stranding of the subcutaneous fat at the right chest wall could be secondary to an infectious process versus localized edema. Other etiologies are not excluded. Please correlate. Distended gallbladder with cholelithiasis. Acute cholecystitis is not excluded. Correlation with a sonogram could be helpful for further evaluation. Electronically signed by: Mikie Phillips MD 07/14/2020 5:06 PM RETAIL SALES REPRESENTATIVE
[2020-07-14] MEDS ORDERED: SODIUM CHL 0.9% 50ML VIAL 9 ML, ALBUTEROL SULFATE NEBS 7.5 MG, IPRATROPIUM BROMIDE NEBS... NEB ONE ×3 (17:17)
[2020-07-14] MEDS ORDERED: DEX 5% W/NACL 0.45% 1000ML 1,000 ML IVS PRN (18:12)
[2020-07-14] MEDS ORDERED: SUCCINYLCHOLINE CHLORIDE 200 MG/10 ML VIAL ONE (19:59)
[2020-07-14] MEDS ORDERED: ETOMIDATE INJECTION 2 MG/ML 20ML VIAL IV ONE (20:27)
[2020-07-14] MEDS ORDERED: MIDAZOLAM HCL 10 MG/10 ML INJ IV ONE (20:40)
[2020-07-14] MEDS ORDERED: SODIUM CHL 0.9% 100ML MINI-BAG 100 ML IVPB ONE (20:43)
[2020-07-14] MEDS ORDERED: MIDAZOLAM INJ 5 MG/5 ML VIAL ONE (20:43)
[2020-07-14] MEDS ORDERED: ROCURONIUM BROMIDE 10 MG/ML VIAL ONE (20:43)
[2020-07-14] MEDS ORDERED: MIDAZOLAM HCL 50 MG/10 ML ONE (20:57)
--- NOTE | 2020-07-14 21:14 | RAD ---
EXAM: Single view chest. INDICATION: Tube placement. COMPARISON: Chest x-ray: 07/14/2020 at 3:14 PM. FINDINGS: There is improved aeration of the right lung with persistent right pulmonary airspace disease with right pleural effusion. Heart is normal in size. No pneumothorax. Endotracheal tube terminates approximately 5.2 cm above the rivera. IMPRESSION: Satisfactory positioning of the endotracheal tube. Improved aeration of the right lung with a persistent right pleural effusion. Electronically signed by: Sesar Barnhart MD 07/14/2020 9:12 PM [facility]
--- NOTE | 2020-07-14 22:07 | RAD ---
EXAM DESCRIPTION: Chest,1 View CLINICAL HISTORY: NG tube placement COMPARISON: None. FINDINGS: Single frontal view of the mid to lower chest and upper abdomen for NG tube placement. The upper lungs are not visualized. Cardiomegaly. Right pleural effusion and right lung airspace opacity. No definite pneumothorax. Again the lung apices are not visualized. NG tube with tip just within the stomach. The side-port is above the level of the gastroesophageal junction. Endotracheal tube not visualized on this image. IMPRESSION: 1. NG tube with tip just in the stomach. Side-port above the level of the gastroesophageal junction. Recommend advancing 5 cm. Electronically signed by: Oral Mccauley 07/14/2020 10:05 PM ASSISTANT PROFESSOR
[2020-07-15 03:09] VITALS: BP 170/82; TEMP 97.7; O2SAT 99
== END 2020-07-14 22:18 | disposition short-term general hospital (02) ==
LOC: ER 14:37
DX: J96.92 Respiratory failure, unspecified with hypercapnia (principal); E11.649 Type 2 diabetes mellitus with hypoglycemia without coma; R53.83 Other fatigue; I50.9 Heart failure, unspecified; I11.0 Hypertensive heart disease with heart failure; J44.9 Chronic obstructive pulmonary disease, unspecified; E11.9 Type 2 diabetes mellitus without complications; F03.90 Unspecified dementia, unspecified severity, without behavioral disturbance, psychotic disturbance, mood disturbance, and anxiety; Z20.828 Contact with and (suspected) exposure to other viral communicable diseases; Z79.4 Long term (current) use of insulin; Z79.899 Other long term (current) drug therapy; Z87.01 Personal history of pneumonia (recurrent)
CPT/HCPCS: 31500; 36415; 36416; 36600; 70450; 71045; 71250; 80053; 80307; 80320; 81001; 82009; 82803; 82805; 82948; 83605; 84484; 85025; 87040; 87635; 93005; 94002; 94644; 94660; 94770; A4216; J0330; J2250; J7050; J7611; J7644; J7799

== ENCOUNTER → 2020-08-08 | Outpatient (CLI) | payer SELFPAY | LOC: YCFC.O 16:14 | PROVIDERS: ATTEND Family Medicine | DX: N18.9 Chronic kidney disease, unspecified (principal) ==

== ENCOUNTER 2020-08-20 13:31 | Emergency (ER) | payer SELFPAY ==
[2020-08-20] MEDS ORDERED: TETANUS-DIPHTHERIA TOXOIDS (TD) SYG IM ONE (14:39)
--- NOTE | 2020-08-20 15:15 | RAD ---
EXAM DESCRIPTION: Chest,1 View CLINICAL HISTORY: 64 years Male, chf COMPARISON: 07/14/2020 Findings: One view(s)/radiograph(s) Cardiomegaly. Slight pulmonary vascular congestion. No pneumothorax. Large right and small left pleural effusions with adjacent airspace disease. No acute osseous abnormality. IMPRESSION: CHF. Large right and small left pleural effusions with adjacent airspace disease. Electronically signed by: Matt Villarreal MD 08/20/2020 3:13 PM [employer] IMPREGNATOR
--- NOTE | 2020-08-20 15:19 | ED.PDOC ---
History of Present Illness - General Chief Complaint: Abdominal Pain Stated Complaint: Abdominal tightness, swelling Time Seen by Provider: 08/20/20 14:14 Additional Information: The patient was sent from the outpatient clinic for increasing distention and tightness of his abdomen. The patient complains of symptoms since yesterday. He denies pain, but has complained of some nausea without vomiting. He denies fever chills. Denies urinary symptoms. Patient has not had any prior abdominal surgeries. He has not had any known Covid exposure. He denies cough or chest pain. He does admit to some mild shortness of breath. The patient mentioned that he had Fluid drained from the right side of his chest within the last few weeks. History was obtained from the patient and his using a language line mitten stitcher. - History of Present Illness Timing/Duration: 24 hours Severity: mild Improving Factors: nothing Worsening Factors: nothing Associated Symptoms: shortness of breath Allergies/Adverse Reactions: Allergies NO KNOWN ALLERGY Allergy (Verified 08/20/20 14:50) Home Medications: Ambulatory Orders Amlodipine Besylate 10 mg PO DAILY 05/24/20 Carvedilol 12.5 mg PO BID 05/24/20 Simvastatin 20 mg PO DAILY 05/24/20 Albuterol Sulfate [Albuterol Sulfate Hfa] 108 mcg IN Q4HR PRN #1 inhaler 05/30/20 Cefdinir [Omnicef] 300 mg PO BID #10 cap 05/30/20 Human Insulin Aspart [Novolog] 0 unit SUBCU PRN PRN 07/14/20 Insulin Detemir [Levemir] 10 unit SUBCU QPM 07/14/20 Review of Systems - Review of Systems Constitutional: States: no symptoms reported EENTM: States: no symptoms reported Respiratory: States: short of breath - Mild and exertional Cardiology: States: no symptoms reported Gastrointestinal/Abdominal: States: see HPI Genitourinary: States: no symptoms reported Musculoskeletal: States: no symptoms reported Neurological: States: no symptoms reported Endocrine: States: no symptoms reported Past Medical History (General) - Patient Medical History Hx Seizures: No Hx Stroke: No Hx Asthma: No Hx of COPD: No Hx Congestive Heart Failure: Yes Hx Pacemaker: No Hx Hypertension: Yes Hx Diabetes: Yes Hx Renal Disease: Yes - kidney stones Hx Cancer: No Hx MRSA: No Surgical History: cholecystectomy - Vaccination History Hx Tetanus, Diphtheria Vaccination: No Hx Influenza Vaccination: Yes Hx Pneumococcal Vaccination: No - Social History Hx Tobacco Use: No Hx Alcohol Use: Yes Hx Substance Use: No Hx Substance Use Treatment: No Hx Depression: No Hx Physical Abuse: No Hx Emotional Abuse: No - Female History Patient : No Family Medical History - Family History Mother Family History: Unknown Physical Exam - Physical Exam General Appearance: Alert Eye Exam: bilateral normal Ears, Nose, Throat: hearing grossly normal, normal ENT inspection Neck: non-tender, full range of motion Respiratory: rales - Mild bibasilar, other - Well-healed thoracostomy tube site right Thorax mid axillary line. Cardiovascular/Chest: normal peripheral pulses, regular rate, rhythm - 2+ pitting edema right lower extremity. Left lower BKA. Gastrointestinal/Abdominal: normal bowel sounds, distended - Markedly distended with some tympany.No tenderness to palpation. Back Exam: normal inspection Extremity: no calf tenderness - Left below the knee amputation, other - Right knee with 2 cm circular superficial avulsion healing well located over the patella. No tenderness swelling effusion or loss of range of motion. The skin surrounding the wound does not appear to be acutely infected. There is no drainage. Neurologic: manager park II-XII nml as tested, no motor/sensory deficits Skin Exam: normal color Progress - Progress Progress: 08/20/20 16:54 Lasix 40 mg IV, aspirin 325 mg by mouth, and Lovenox 70 mg subcutaneously given. Oxygen administered by cannula. 08/20/20 16:54 Transfer decision has been made. Nurses are currently calling facilities to find 1 with an available bed. Multiple systems do not have beds at this time. 08/20/20 17:08 All diagnostic findings and treatment plan were explained to the patient using a language line mitten stitcher. The patient was amenable to transfer for inpatient disposition. Cardiology consult is not available at this facility. Previously today hospitals in [place], the whole [facility] system, the whole [facility], and the whole [facility] system were consulted and do not have beds available. Nursing staff is presently consulting a hospital in [place] to inquire regarding bed availability. They require PCR testing for COVID-19 which is being initiated. Vital signs pulse 79, blood pressure 168/92, SaO2 91% on 5 L nasal oxygen. 08/20/20 18:22 Patient has been placed on a waiting list for admission to [place]. Urinary output has been relatively minimal. Lasix 40 mg IV ordered. 08/20/20 20:31 Patient is alert and comfortable. Blood pressure 162/88, pulse 79, SaO2 94% on 5 L and respirations are 21. Urinary output is 600 mL plus. 08/20/20 20:37 Discussed with , Hospitalist on-call for [facility] in [facility]. She has agreed to admit the patient to their hospital on a wait list basis pending availability of a bed. 08/20/20 21:57 I discussed this case with Dr. Jerardo Quiroz, Test Architect on-call for [facility] in detail. He stated that he doubted the patient had an NSTEMI and felt that the creatinine elevations were due more to his heart failure. He said the diarrhea she should could be continued With Lasix at a dose of 80 mg every 6 hours. He did not feel the patient was a candidate for a catheterization. He also recommended that Lovenox be discontinued. He recommended the patient be admitted here for continued diuresis and A drainage procedure Of his pericardial effusions. 08/21/20 00:16 The above entry is in error. The Test Architect recommended a drainage procedure for PLEURAL effusion. No pericardial effusions have been identified in this patient. 08/21/20 02:49 The hospitalist on-call for [facility], nurse practitioner Chris, was consulted at 10:09 PM and again at 10:33 PM. He recommended that the patient be admitted elsewhere and was not suitable for admission here. He noted that the patient had been Admitted to our hospital in May 2020 at which time he had similarly elevated creatinines but did not have any elevations of troponins. He felt that the patient's continually rising troponins did represent a likely non-ST elevation WI. 08/21/20 05:16 Patient is comfortable at this time.Urinary output total is 20 to 50 mL.Current vital signs: Temperature 98.6, pulse 97, SaO2 98% on 5 L, blood pressure 165/80 08/21/20 05:[address] Milner, Hospitalist on-call for [facility] in [place]. He is willing to admit the patient to the telemetry floor for further care in the hospital. 08/21/20 06:15 The patient departed the emergency room via ambulance in good condition. - Results/Orders Results/Orders: 08/20/20 14:33 Chest,1 View [RAD] Stat Knee,Right 1 or 2 Views [RAD] Stat 08/20/20 14:54 B-TYPE NATRIURETIC PEPTIDE/BNP Stat CARDIAC ENZYME GROUP Stat COMPLETE METABOLIC PROFILE Stat 08/20/20 15:15 EKG STAT Laboratory Results - last 24 hr 08/20/20 08/20/20 14:54 14:54 WBC 8.9 RBC 4.41 L Hgb 10.9 L Hct 33.6 L MCV 76.3 L MCH 24.8 L MCHC 32.5 L RDW 16.9 H Plt Count 168 MPV 8.4 Absolute Neuts (auto) 7.50 H Absolute Lymphs (auto) 0.60 L Absolute Monos (auto) 0.70 Absolute Eos (auto) 0.10 Absolute Basos (auto) 0.00 Neutrophils % 84.8 H Lymphocytes % 6.2 L Monocytes % 7.4 Eosinophils % 1.2 Basophils % 0.4 Sodium 135 Potassium 4.4 Chloride 103 Carbon Dioxide 23 Anion Gap 13.4 BUN 52 H Creatinine 2.87 H BUN/Creatinine Ratio 18.1 Random Glucose 77 Serum Osmolality 282.9 Calcium 8.6 Total Bilirubin 0.4 AST 17 ALT 15 Alkaline Phosphatase 81 Creatine Kinase 75 Serum Total Protein 7.2 Albumin 3.1 L Globulin 4.1 H Albumin/Globulin Ratio 0.8 L Vital Signs - 24 hr 08/20/20 08/20/20 14:12 15:00 Temperature 96.8 F L 96.4 F L Pulse Rate [ 82 80 Left Radial] Respiratory 20 20 Rate Blood Pressure 153/62 164/93 [Left Arm] O2 Sat by Pulse 83 L 94 L Oximetry Electrocardiogram ventricular rate 80/min, PA interval 160 ms, QRS 136 ms, Right bundle branch block/left posterior fascicular block, QT/QTc 432/498. No acute ST elevation or depression. EXAM DESCRIPTION: Chest,1 View CLINICAL HISTORY: 64 years Male, chf COMPARISON: 07/14/2020 Findings: One view(s)/radiograph(s) Cardiomegaly. Slight pulmonary vascular congestion. No pneumothorax. Large right and small left pleural effusions with adjacent airspace disease. No acute osseous abnorm ality. IMPRESSION: CHF. Large right and small left pleural effusions with adjacent airspace disease. Electronically signed by: Matt Villarreal MD 08/20/2020 3:13 PM GOVERNMENT CONTRACTS MANAGER EXAM DESCRIPTION: Knee,Right 1 or 2 Views CLINICAL HISTORY: 64 years Male, chf COMPARISON: None. Findings: Two views/radiographs Location: Right knee No acute fracture or dislocation. Joint spaces are maintained. Small joint effusion. Vascular calcifications. IMPRESSION: Small right knee joint effusion. No acute osseous abnormality. Electronically signed by: Matt Villarreal MD 08/20/2020 3:16 PM EXAM DESCRIPTION: Abdoment/Pelvis w/o Contrast CLINICAL HISTORY: 64 years Male, Abdominal distention, r/o SBO. Suspected Ascites. TECHNIQUE: This exam was performed according to our departmental dose-optimization program, which includes automated exposure control, adjustment of the mA and/or kV according to patient size and/or use of iterative reconstruction technique. COMPARISON: 05/25/2020 FINDINGS: Large right and moderate left pleural effusions with adjacent airspace disease. Evaluation limited by lack of intravenous contrast. Cholelithiasis. The contours of the liver, gallbladder, spleen, pancreas and adrenal glands are unremarkable. Normal renal contours. No hydronephrosis. No urolithiasis. Circumferential bladder wall thickening. No evidence of bowel obstruction or focal inflammatory change. Normal appendix. No adenopathy. No focal fluid collection. No free air. Normal caliber abdominal aorta. Body wall anasarca. Bilateral L5 pars defects. Evaluation limited by motion artifact. No acute or suspicious osseous abnormality. IMPRESSION: 1. Circumferential bladder wall thickening. Recommend correlation with urinalysis for evaluation of cystitis. 2. Large right and moderate left pleural effusions with adjacent atelectasis/consolidation. Electronically signed by: Matt Villarreal MD 08/20/2020 3:52 PM GOVERNMENT CONTRACTS MANAGER Cardiac enzymes: CK-MB 7.8, troponin 0 0.12, BNP 3920. Cardiac enzymes drawn approximately 2 hours after first study Troponin is 0.19. 1820 Repeat EKG shows a sinus rhythm 79 a minute with no acute STT changes.Findings on this EKG are similar to the ones on her earlier. No acute interval changes. Third electrocardiogram done at approximately 8 PM showed a ventricular rhythm [address] segment abnormalities nonspecific ST changes and generally unchanged from prior tracing. Repeat troponin 0 0.26. 08/20/20 15:15 EKG STAT 08/20/20 18:00 EKG STAT 08/20/20 20:00 EKG STAT Laboratory Results - last 24 hr 08/20/20 08/20/20 08/20/20 14:54 14:54 14:57 WBC 8.9 RBC 4.41 L Hgb 10.9 L Hct 33.6 L MCV 76.3 L MCH 24.8 L MCHC 32.5 L RDW 16.9 H Plt Count 168 MPV 8.4 Absolute Neuts (auto) 7.50 H Absolute Lymphs (auto) 0.60 L Absolute Monos (auto) 0.70 Absolute Eos (auto) 0.10 Absolute Basos (auto) 0.00 Neutrophils % 84.8 H Lymphocytes % 6.2 L Monocytes % 7.4 Eosinophils % 1.2 Basophils % 0.4 PT 12.0 H INR 1.21 H PTT (SP) 30.1 Sodium 135 Potassium 4.4 Chloride 103 Carbon Dioxide 23 Anion Gap 13.4 BUN 52 H Creatinine 2.87 H BUN/Creatinine Ratio 18.1 Random Glucose 77 Serum Osmolality 282.9 Calcium 8.6 Total Bilirubin 0.4 AST 17 ALT 15 Alkaline Phosphatase 81 Creatine Kinase 75 CK-MB (CK-2) 7.8 H* CK-MB (CK-2) % Not Reportable Troponin I 0.12 H* B-Natriuretic Peptide 3920.0 H* Serum Total Protein 7.2 Albumin 3.1 L Globulin 4.1 H Albumin/Globulin Ratio 0.8 L 08/20/20 08/20/20 17:23 19:51 WBC RBC Hgb Hct MCV MCH MCHC RDW Plt Count MPV Absolute Neuts (auto) Absolute Lymphs (auto) Absolute Monos (auto) Absolute Eos (auto) Absolute Basos (auto) Neutrophils % Lymphocytes % Monocytes % Eosinophils % Basophils % PT INR PTT (SP) Sodium Potassium Chloride Carbon Dioxide Anion Gap BUN Creatinine BUN/Creatinine Ratio Random Glucose Serum Osmolality Calcium Total Bilirubin AST ALT Alkaline Phosphatase Creatine Kinase 78 83 CK-MB (CK-2) 9.7 H* 10.6 H* CK-MB (CK-2) % Not Reportable Not Reportable Troponin I 0.19 H* 0.26 H* B-Natriuretic Peptide Serum Total Protein Albumin Globulin Albumin/Globulin Ratio Rapid COVID-19 test negative. 08/20/20 15:15 EKG STAT 08/20/20 18:00 EKG STAT 08/20/20 20:00 EKG STAT Laboratory Results - last 24 hr 08/20/20 08/20/20 08/20/20 14:54 14:54 14:57 WBC 8.9 RBC 4.41 L Hgb 10.9 L Hct 33.6 L MCV 76.3 L MCH 24.8 L MCHC 32.5 L RDW 16.9 H Plt Count 168 MPV 8.4 Absolute Neuts (auto) 7.50 H Absolute Lymphs (auto) 0.60 L Absolute Monos (auto) 0.70 Absolute Eos (auto) 0.10 Absolute Basos (auto) 0.00 Neutrophils % 84.8 H Lymphocytes % 6.2 L Monocytes % 7.4 Eosinophils % 1.2 Basophils % 0.4 PT 12.0 H INR 1.21 H PTT (SP) 30.1 Sodium 135 Potassium 4.4 Chloride 103 Carbon Dioxide 23 Anion Gap 13.4 BUN 52 H Creatinine 2.87 H BUN/Creatinine Ratio 18.1 Random Glucose 77 Serum Osmolality 282.9 Calcium 8.6 Total Bilirubin 0.4 AST 17 ALT 15 Alkaline Phosphatase 81 Creatine Kinase 75 CK-MB (CK-2) 7.8 H* CK-MB (CK-2) % Not Reportable Troponin I 0.12 H* B-Natriuretic Peptide 3920.0 H* Serum Total Protein 7.2 Albumin 3.1 L Globulin 4.1 H Albumin/Globulin Ratio 0.8 L 08/20/20 08/20/20 17:23 19:51 WBC RBC Hgb Hct MCV MCH MCHC RDW Plt Count MPV Absolute Neuts (auto) Absolute Lymphs (auto) Absolute Monos (auto) Absolute Eos (auto) Absolute Basos (auto) Neutrophils % Lymphocytes % Monocytes % Eosinophils % Basophils % PT INR PTT (SP) Sodium Potassium Chloride Carbon Dioxide Anion Gap BUN Creatinine BUN/Creatinine Ratio Random Glucose Serum Osmolality Calcium Total Bilirubin AST ALT Alkaline Phosphatase Creatine Kinase 78 83 CK-MB (CK-2) 9.7 H* 10.6 H* CK-MB (CK-2) % Not Reportable Not Reportable Troponin I 0.19 H* 0.26 H* B-Natriuretic Peptide Serum Total Protein Albumin Globulin Albumin/Globulin Ratio 08/20/20 15:15 EKG STAT 08/20/20 18:00 EKG STAT 08/20/20 20:00 EKG STAT 08/21/20 00:00 EKG .ONCE Laboratory Results - last 24 hr 08/20/20 08/20/20 08/20/20 14:54 14:54 14:57 WBC 8.9 RBC 4.41 L Hgb 10.9 L Hct 33.6 L MCV 76.3 L MCH 24.8 L MCHC 32.5 L RDW 16.9 H Plt Count 168 MPV 8.4 Absolute Neuts (auto) 7.50 H Absolute Lymphs (auto) 0.60 L Absolute Monos (auto) 0.70 Absolute Eos (auto) 0.10 Absolute Basos (auto) 0.00 Neutrophils % 84.8 H Lymphocytes % 6.2 L Monocytes % 7.4 Eosinophils % 1.2 Basophils % 0.4 PT 12.0 H INR 1.21 H PTT (SP) 30.1 Sodium 135 Potassium 4.4 Chloride 103 Carbon Dioxide 23 Anion Gap 13.4 BUN 52 H Creatinine 2.87 H BUN/Creatinine Ratio 18.1 Random Glucose 77 Serum Osmolality 282.9 Calcium 8.6 Total Bilirubin 0.4 AST 17 ALT 15 Alkaline Phosphatase 81 Creatine Kinase 75 CK-MB (CK-2) 7.8 H* CK-MB (CK-2) % Not Reportable Troponin I 0.12 H* B-Natriuretic Peptide 3920.0 H* Serum Total Protein 7.2 Albumin 3.1 L Globulin 4.1 H Albumin/Globulin Ratio 0.8 L 08/20/20 08/20/20 08/21/20 17:23 19:51 00:14 WBC RBC Hgb Hct MCV MCH MCHC RDW Plt Count MPV Absolute Neuts (auto) Absolute Lymphs (auto) Absolute Monos (auto) Absolute Eos (auto) Absolute Basos (auto) Neutrophils % Lymphocytes % Monocytes % Eosinophils % Basophils % PT INR PTT (SP) Sodium Potassium Chloride Carbon Dioxide Anion Gap BUN Creatinine BUN/Creatinine Ratio Random Glucose Serum Osmolality Calcium Total Bilirubin AST ALT Alkaline Phosphatase Creatine Kinase 78 83 85 CK-MB (CK-2) 9.7 H* 10.6 H* 11.6 H* CK-MB (CK-2) % Not Reportable Not Reportable Not Reportable Troponin I 0.19 H* 0.26 H* 0.29 H* B-Natriuretic Peptide Serum Total Protein Albumin Globulin Albumin/Globulin Ratio Fourth EKG shows normal sinus rhythm, 84/min, right bundle branch block, no acute ST segment elevation or depression. This tracing is essentially the same as the ones that preceded it. Departure - Departure Clinical Impression: Pleural effusion due to CHF (congestive heart failure), Hypoxemia, Congestive heart failure (CHF), Abrasion, NSTEMI (non-ST elevated myocardial infarction), Hypertension, Diabetes, Renal insufficiency Disposition: Transfer to Hospital Departure Forms: ED Discharge - Pt. Copy, Patient Portal Self Enrollment Instructions: DI for Abdominal Pain-Adult Referrals: Linda Sebastian MD [Primary Care Provider] - 1-2 Weeks Home Medications: Ambulatory Orders Amlodipine Besylate 10 mg PO DAILY 05/24/20 Carvedilol 12.5 mg PO BID 05/24/20 Simvastatin 20 mg PO DAILY 05/24/20 Albuterol Sulfate [Albuterol Sulfate Hfa] 108 mcg IN Q4HR PRN #1 inhaler 05/30/20 Cefdinir [Omnicef] 300 mg PO BID #10 cap 05/30/20 Human Insulin Aspart [Novolog] 0 unit SUBCU PRN PRN 07/14/20 Insulin Detemir [Levemir] 10 unit SUBCU QPM 07/14/20 Decision To Admit - Decistion To Admit Decision to Admit Date: 08/20/20 Decision to Admit Time: 16:50 - No beds at multiple hospital systems.Long delay expected. Transfer to Outside Facility - Transfer Information Decision to Transfer Date: 08/20/20 Decision to Transfer Time: 16:50 Reason for Transfer: required specialist not available
[2020-08-20] MEDS ORDERED: FUROSEMIDE INJ 40 MG/4 ML VIAL IV ONE ×2 (15:49→18:21)
--- NOTE | 2020-08-20 15:54 | CT ---
EXAM DESCRIPTION: Abdoment/Pelvis w/o Contrast CLINICAL HISTORY: 64 years Male, Abdominal distention, r/o SBO. Suspected Ascites. TECHNIQUE: This exam was performed according to our departmental dose-optimization program, which includes automated exposure control, adjustment of the mA and/or kV according to patient size and/or use of iterative reconstruction technique. COMPARISON: 05/25/2020 FINDINGS: Large right and moderate left pleural effusions with adjacent airspace disease. Evaluation limited by lack of intravenous contrast. Cholelithiasis. The contours of the liver, gallbladder, spleen, pancreas and adrenal glands are unremarkable. Normal renal contours. No hydronephrosis. No urolithiasis. Circumferential bladder wall thickening. No evidence of bowel obstruction or focal inflammatory change. Normal appendix. No adenopathy. No focal fluid collection. No free air. Normal caliber abdominal aorta. Body wall anasarca. Bilateral L5 pars defects. Evaluation limited by motion artifact. No acute or suspicious osseous abnormality. IMPRESSION: 1. Circumferential bladder wall thickening. Recommend correlation with urinalysis for evaluation of cystitis. 2. Large right and moderate left pleural effusions with adjacent atelectasis/consolidation. Electronically signed by: Matt Villarreal MD 08/20/2020 3:52 PM LOGISTICS PROGRAM MANAGER
[2020-08-20] MEDS ORDERED: ASPIRIN TABLET 325 MG TAB PO ONE (16:17)
[2020-08-20] MEDS ORDERED: ENOXAPARIN SODIUM 80 MG/0.8 ML SYG SUBCU SCH (16:30)
[2020-08-20] MEDS ORDERED: FUROSEMIDE INJ 100 MG/10 ML VIAL IV SCH (22:00)
[2020-08-20] MEDS ORDERED: FUROSEMIDE INJ 40 MG/4 ML VIAL ONE (22:15)
[2020-08-21] MEDS ORDERED: INSULIN DETEMIR 100 UNITS/ML PEN SUBCU ONE (03:30)
[2020-08-21] MEDS: FUROSEMIDE INJ 20 MG/2 ML VIAL IV SCH ×2 (04:00→06:17)
[2020-08-21 05:55] VITALS: BP 173/98; O2SAT 96
[2020-08-21 06:25] VITALS: TEMP 98.5
[2020-08-21] MEDS ORDERED: INSULIN, REG.(HUMAN) 100 U/ML VIAL SUBCU ONE (07:00)
[2020-08-21] MEDS ORDERED: amLODIPine BESYLATE 5 MG TAB PO ONE (09:00)
[2020-08-21] MEDS ORDERED: CARVEDILOL 12.5 MG TAB PO SCH (09:00)
[2020-08-21] MEDS ORDERED: FAMOTIDINE 20 MG TAB PO SCH (09:00)
[2020-08-21] MEDS ORDERED: SIMVASTATIN 20 MG TAB PO SCH (21:00)
== END 2020-08-21 06:14 | disposition short-term general hospital (02) ==
LOC: ER 13:31
DX: I50.9 Heart failure, unspecified (principal); R09.02 Hypoxemia; I21.4 Non-ST elevation (NSTEMI) myocardial infarction; I11.0 Hypertensive heart disease with heart failure; E11.9 Type 2 diabetes mellitus without complications; N28.9 Disorder of kidney and ureter, unspecified; S80.211A Abrasion, right knee, initial encounter; I45.10 Unspecified right bundle-branch block; I44.4 Left anterior fascicular block; Z20.822 Contact with and (suspected) exposure to COVID-19; Z90.49 Acquired absence of other specified parts of digestive tract; Z87.442 Personal history of urinary calculi; Z79.4 Long term (current) use of insulin; Z79.899 Other long term (current) drug therapy; X58.XXXA Exposure to other specified factors, initial encounter; Y92.9 Unspecified place or not applicable
CPT/HCPCS: 36415; 71045; 73560; 74176; 80053; 82550; 82553; 82948; 83880; 84484; 85025; 85610; 85730; 87635; 90714; 93005; J1650; J1940

== ENCOUNTER 2020-09-19 19:35 | Inpatient (IN) | payer SELFPAY ==
[2020-09-19] MEDS ORDERED: SODIUM CHLORIDE 0.9% (FLUSH) 10 ML SYG IV PRN ×2 (20:02→20:05)
--- NOTE | 2020-09-19 20:18 | ED.PDOC ---
History of Present Illness - General Chief Complaint: Respiratory Problem Stated Complaint: shortness of breath Time Seen by Provider: 09/19/20 20:05 Source: patient, RN notes reviewed, Vital Signs reviewed Exam Limitations: no limitations - History of Present Illness Initial Comments: Patient is a 64-year-old male who presents with complaints of worsening shortness of breath over the few days. This started 3 days ago but significantly worsened today. Patient has a history of diabetes, CHF and coronary artery disease. Patient denies any fever or chills. He denies any cough. Nothing makes this better. It gets worse when he lays down or tries to get up and move around. 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 It is moderate in severity. It is constant. Timing/Duration: 24 hours - Worsening over the last 24 hours. It is been ongoing for 3 to 4 days. Severity: moderate Activities at Onset: none Possible Cause: occasional episodes - CHF Improving Factors: nothing Worsening Factors: movement, other - Fine position Associated Symptoms: denies symptoms Respiratory Risk Factors: other - History of CHF Allergies/Adverse Reactions: Allergies NO KNOWN ALLERGY Allergy (Verified 08/20/20 14:50) Home Medications: Ambulatory Orders Amlodipine Besylate 10 mg PO DAILY 05/24/20 Carvedilol 12.5 mg PO BID 05/24/20 Simvastatin 20 mg PO DAILY 05/24/20 Albuterol Sulfate [Albuterol Sulfate Hfa] 108 mcg IN Q4HR PRN #1 inhaler 05/30/20 Cefdinir [Omnicef] 300 mg PO BID #10 cap 05/30/20 Human Insulin Aspart [Novolog] 0 unit SUBCU PRN PRN 07/14/20 Insulin Detemir [Levemir] 10 unit SUBCU QPM 07/14/20 Review of Systems - Review of Systems Constitutional: States: no symptoms reported, see HPI. Denies: chills, fever, malaise, weakness EENTM: States: no symptoms reported. Denies: eye pain, blurred vision, double vision Respiratory: States: see HPI, short of breath. Denies: cough, stridor, wheezing Cardiology: States: no symptoms reported. Denies: chest pain, palpitations, syncope Gastrointestinal/Abdominal: States: no symptoms reported. Denies: abdominal pain, nausea, vomiting Genitourinary: States: no symptoms reported. Denies: dysuria, frequency Musculoskeletal: States: no symptoms reported. Denies: back pain, joint pain, neck pain Skin: States: no symptoms reported. Denies: change in color, rash Neurological: States: no symptoms reported. Denies: tingling, tremors, weakness Endocrine: States: no symptoms reported. Denies: increased hunger, increased thirst, increased urine Hematologic/Lymphatic: States: no symptoms reported. Denies: blood clots, easy bleeding All other Systems: Reviewed and Negative Past Medical History (General) - Patient Medical History Hx Seizures: No Hx Stroke: No Hx Asthma: No Hx of COPD: No Hx Congestive Heart Failure: Yes Hx Pacemaker: No Hx Hypertension: Yes Hx Diabetes: Yes Hx Renal Disease: Yes - kidney stones Hx Cancer: No Hx MRSA: No - Vaccination History Hx Tetanus, Diphtheria Vaccination: No Hx Influenza Vaccination: Yes Hx Pneumococcal Vaccination: No - Social History Hx Tobacco Use: No Hx Alcohol Use: Yes Hx Substance Use: No Hx Substance Use Treatment: No Hx Depression: No Hx Physical Abuse: No Hx Emotional Abuse: No - Female History Patient : No Family Medical History - Family History Mother Family History: Unknown Physical Exam - Physical Exam General Appearance: Alert, Comfortable, Unkempt, Well Developed, Well Hydrated, Well Nourished Eyes, Ears, Nose, Throat Exam: PERRL/EOMI, normal ENT inspection, pharynx normal Neck: non-tender, full range of motion, supple Respiratory: chest non-tender, lungs clear, no accessory muscle use, respiratory distress - Mild, decreased breath sounds Cardiovascular/Chest: normal peripheral pulses, regular rate, rhythm, no edema, no gallop, no JVD, no murmur Peripheral Pulses: radial,right: 2+, radial,left: 2+ Gastrointestinal/Abdominal: normal bowel sounds, non tender, soft Extremity: non-tender, normal capillary refill, other - Left BKA Neurologic: lab rn II-XII nml as tested, no motor/sensory deficits, alert, normal mood/affect, oriented x 3 Skin Exam: normal color, warm/dry Lymphatic: no adenopathy Progress - Progress Progress: Differential diagnosis: Covid, acute MT, CHF exacerbation, COPD exacerbation among others. 09/19/20 22:05 Patient has slightly worsening renal insufficiency. Additionally he is got an elevated BNP consistent with CHF exacerbation. His troponin is borderline but trending downward. I have discussed this patient with Lacie Gutierrez NP, and she accepts the patient for admission for diuresis. I discussed this plan of care with the patient he voices understanding and agreement with admission. Ovidio Quintero M.D. #[id number] - Results/Orders Results/Orders: EKG performed 19 September 2020 at 2005 hrs.: Normal sinus rhythm at 73 bpm, right bundle branch block, possible inferior infarct, age indeterminate, abnormal EKG. No ST elevation concerning for acute MT, abnormal EKG. No previous EKG available at this time. EXAM: XR Chest, 1 View CLINICAL HISTORY: shortness of breath TECHNIQUE: Frontal view of the chest. COMPARISON: 08/20/2020 FINDINGS: Lungs: Stable airspace consolidation right base. Mild vascular congestion present. Pleural space: Slight increased small right pleural effusion. No pneumothorax. Heart: Stable cardiac enlargement. Mediastinum: No abnormality noted. Bones/joints: No osseous destruction or sclerosis noted. IMPRESSION: 1. Increased small right pleural effusion. Stable airspace consolidation in the lower right lung which could reflect pneumonia. Also consider mucous plugging. 2. Vascular congestion. Electronically signed by: Jeannine Diaz MD 09/19/2020 8:24 PM 09/19/20 20:02 Sodium Chloride 0.9% (Flush) [Saline Flush Syringe] 10 ml IV PRN PRN 09/19/20 20:03 IV Care:Saline Lock per [facility] QSHIFT Telemetry .ONCE 09/19/20 20:05 Sodium Chloride 0.9% (Flush) [Saline Flush Syringe] 3 ml IV PRN PRN 09/19/20 20:06 IV Care:Saline Lock per [facility] QSHIFT Telemetry ONCE 09/19/20 20:15 EKG STAT EKG STAT 09/19/20 21:30 RAPID SARS-CoV-2 RNA Stat 09/20/20 09:00 Pulse Ox Daily Pulse Ox Daily Laboratory Results - last 24 hr 09/19/20 09/19/20 09/19/20 20:09 20:09 20:09 WBC 6.0 RBC 3.92 L Hgb 10.0 L Hct 30.7 L MCV 78.2 L MCH 25.4 L MCHC 32.5 L RDW 19.8 H Plt Count 222 MPV 8.6 Absolute Neuts (auto) 4.10 Absolute Lymphs (auto) 0.90 L Absolute Monos (auto) 0.50 Absolute Eos (auto) 0.30 Absolute Basos (auto) 0.00 Neutrophils % 69.2 Lymphocytes % 15.5 L Monocytes % 9.1 H Eosinophils % 5.5 H Basophils % 0.7 PT 14.4 H INR 1.45 H PTT (SP) 28.4 D-Dimer, Quantitative 1550.0 H* Sodium 141 Potassium 4.6 Chloride 111 Carbon Dioxide 21 Anion Gap 13.6 BUN 55 H Creatinine 3.71 H BUN/Creatinine Ratio 14.8 Random Glucose 42 L Serum Osmolality 293.2 Lactic Acid Calcium 8.1 L Total Bilirubin 0.6 AST 21 ALT 23 Alkaline Phosphatase 92 Creatine Kinase 99 CK-MB (CK-2) 6.2 H* CK-MB (CK-2) % Not Reportable Troponin I 0.06 H B-Natriuretic Peptide > 5000.0 H* Serum Total Protein 7.6 Albumin 3.4 Globulin 4.2 H Albumin/Globulin Ratio 0.8 L 09/19/20 09/19/20 20:09 21:37 WBC RBC Hgb Hct MCV MCH MCHC RDW Plt Count MPV Absolute Neuts (auto) Absolute Lymphs (auto) Absolute Monos (auto) Absolute Eos (auto) Absolute Basos (auto) Neutrophils % Lymphocytes % Monocytes % Eosinophils % Basophils % PT INR PTT (SP) D-Dimer, Quantitative Sodium Potassium Chloride Carbon Dioxide Anion Gap BUN Creatinine BUN/Creatinine Ratio Random Glucose Serum Osmolality Lactic Acid 1.1 Calcium Total Bilirubin AST ALT Alkaline Phosphatase Creatine Kinase CK-MB (CK-2) CK-MB (CK-2) % Troponin I 0.05 B-Natriuretic Peptide Serum Total Protein Albumin Globulin Albumin/Globulin Ratio Vital Signs 09/19/20 09/19/20 09/19/20 19:50 20:02 20:35 Temperature 98.9 F 98.0 F Pulse Rate 74 Pulse Rate [ 74 74 69 TELE] Respiratory 24 18 Rate Blood Pressure 167/103 157/94 [Left Arm] O2 Sat by Pulse 96 96 Oximetry 09/19/20 21:00 Temperature 98.5 F Pulse Rate 69 Pulse Rate [ 68 TELE] Respiratory 20 Rate Blood Pressure 158/74 [Left Arm] O2 Sat by Pulse 95 Oximetry Departure - Departure Clinical Impression: Elevated troponin I level, Acute on chronic renal insufficiency CHF exacerbation Qualifiers: Heart failure type: unspecified Qualified Code(s): I50.9 - Heart failure, unspecified Time of Disposition: 22:07 Disposition: Admit Patient Condition: Fair Departure Forms: ED Discharge - Pt. Copy, Patient Portal Self Enrollment Diet: low fat, low cholesterol, low salt diet Activity: as per physical therapy Referrals: Linda Sebastian MD [Primary Care Provider] - 1-2 Weeks Home Medications: Ambulatory Orders Amlodipine Besylate 10 mg PO DAILY 05/24/20 Carvedilol 12.5 mg PO BID 05/24/20 Simvastatin 20 mg PO DAILY 05/24/20 Albuterol Sulfate [Albuterol Sulfate Hfa] 108 mcg IN Q4HR PRN #1 inhaler 05/30/20 Cefdinir [Omnicef] 300 mg PO BID #10 cap 05/30/20 Human Insulin Aspart [Novolog] 0 unit SUBCU PRN PRN 07/14/20 Insulin Detemir [Levemir] 10 unit SUBCU QPM 07/14/20 Decision To Admit - Decistion To Admit Decision to Admit Date: 09/19/20 Decision to Admit Time: 21:00
--- NOTE | 2020-09-19 20:26 | RAD ---
EXAM: XR Chest, 1 View CLINICAL HISTORY: shortness of breath TECHNIQUE: Frontal view of the chest. COMPARISON: 08/20/2020 FINDINGS: Lungs: Stable airspace consolidation right base. Mild vascular congestion present. Pleural space: Slight increased small right pleural effusion. No pneumothorax. Heart: Stable cardiac enlargement. Mediastinum: No abnormality noted. Bones/joints: No osseous destruction or sclerosis noted. IMPRESSION: 1. Increased small right pleural effusion. Stable airspace consolidation in the lower right lung which could reflect pneumonia. Also consider mucous plugging. 2. Vascular congestion. Electronically signed by: Jeannine Diaz MD 09/19/2020 8:24 PM [facility]
[2020-09-19] MEDS ORDERED: FUROSEMIDE INJ 40 MG/4 ML VIAL ONE (22:14)
[2020-09-19] MEDS ORDERED: FUROSEMIDE INJ 40 MG/4 ML VIAL IV ONE (22:27)
[2020-09-20] MEDS ORDERED: SODIUM CHLORIDE 0.9% (FLUSH) 10 ML SYG IV PRN (01:00)
[2020-09-20] MEDS ORDERED: NITROGLYCERIN 0.4 MG 25 EA TAB SL PRN (01:00)
[2020-09-20] MEDS ORDERED: GLUCAGON INJ 1 MG VIAL SUBCU PRN (01:06)
[2020-09-20] MEDS ORDERED: DEXTROSE 50% 25 GM/50 ML SYG IV PRN (01:06)
[2020-09-20] MEDS ORDERED: ALBUTEROL SULFATE 2.5 MG/3 ML VIAL NEB PRN (01:08)
[2020-09-20] MEDS: IV SET AND CAP CHANGE INJ INJ SCH (02:35)
[2020-09-20] MEDS: PANTOPRAZOLE SODIUM IV 40 MG VIAL IV SCH (05:56)
[2020-09-20] MEDS: INSULIN LISPRO 100 UNITS/ML PEN SUBCU SCH ×4 (07:14→21:00)
--- NOTE | 2020-09-20 07:16 | RAD ---
EXAM: XR Chest, 2 Views CLINICAL HISTORY: CHF TECHNIQUE: Frontal and lateral views of the chest. COMPARISON: 09/19/2020 FINDINGS: Lungs: Stable consolidation in both lung bases right greater than left. Pleural space: There is stable right pleural effusion. Small left pleural effusion present. No pneumothorax. Heart: Stable enlarged cardiac shadow. Mediastinum: No abnormality noted. Bones/joints: No abnormality noted. Vasculature: Stable vascular congestion. IMPRESSION: Stable abnormalities as above. Electronically signed by: Jeannine Diaz MD 09/20/2020 7:15 AM [facility]
[2020-09-20] MEDS: NITROGLYCERIN 2% 1 GM UD TOP SCH ×2 (08:42→16:26)
[2020-09-20] MEDS: SODIUM CHLORIDE 0.9% (FLUSH) 10 ML SYG IV SCH ×2 (08:42→20:02)
[2020-09-20] MEDS: ALBUTEROL SULFATE 2.5 MG/3 ML VIAL NEB SCH ×4 (09:00→20:23)
[2020-09-20] MEDS ORDERED: FUROSEMIDE INJ 40 MG/4 ML VIAL IV SCH (09:00)
[2020-09-20] MEDS ORDERED: POTASSIUM CHLORIDE 20 MEQ TAB PO SCH (11:00)
--- NOTE | 2020-09-20 11:02 | HP ---
SUPERVISING PHYSICIAN: Zoran Harrington MD CHIEF COMPLAINT: Increasing shortness of breath HISTORY OF PRESENT ILLNESS: Mr. Garcia is a 64 year-old male who has a past medical history of renal failure, chronic obstructive pulmonary disease, diabetes mellitus, hypertension. He presented to the Emergency Room late last night complaining of 3 days of increasing shortness of breath. He was tested for Covid and found to be negative. He notes his symptoms are worse when he lays down or tries to get up and move around. A chest x-ray in the Emergency Room showed consolidation of both lung bases, right greater than left, with a moderate sized right pleural effusion. His laboratory studies showed he had a white count of 4,900 without a left shift. His chemistries showed his creatinine was at 3.71 with his baseline creatinine around 2.8. Urinalysis was pending. His vital signs in the Emergency Room showed at rest he was satting 95% on room air. Given his past medical history and current increasing shortness of breath with pleural effusion and elevated laboratory studies indicating worsening renal function and possible fluid overload, the patient is going to be admitted for further evaluation and treatment. He was given 40 of Lasix in the Emergency Room prior to admission. He was admitted in stable condition. PAST MEDICAL HISTORY: 1. Diabetes mellitus type 2, poorly controlled. 2. Hyperlipidemia. 3. Hypertension. 4. Congestive heart failure with echocardiogram in May showing an ejection fraction of 60 to 65%. 5. Chronic renal failure followed by Dr. Noland. 6. History of alcohol abuse. 7. Chronic obstructive pulmonary disease. 8. Chronic cholelithiasis. PAST SURGICAL HISTORY: 1. Left below-knee amputation in 2019. CURRENT MEDICATIONS: 1. Potassium chloride 20 mEq daily. 2. Levemir 10 units daily. 3. Sliding scale with NovoLog. 4. Lasix 40 mg daily. 5. Plavix 75 mg daily. 6. Carvedilol 12.5 mg b.i.d. 7. Atorvastatin calcium 40 mg daily. 8. Amlodipine 10 mg daily. 9. Albuterol inhaler, one puff every 4 hours as needed. ALLERGIES: NO KNOWN DRUG ALLERGIES. FAMILY HISTORY: Noncontributory. SOCIAL HISTORY: Patient has a history of smoking but quit many years previous as well as has a history of alcohol abuse and has quit multiple years prior to this admission. He is disabled due to the amputation. He is , he lives in [place]. He denies any illicit drug use. REVIEW OF SYSTEMS: CONSTITUTIONAL: Positive for general malaise, denies fevers, chills, HEENT: Denies headaches. vision changes, sore throat. nasal congestion. CHEST: As noted in history of present illness, increasing shortness of breath. No reported cough or wheezing.. HEART: Denies chest pain, palpitations, or syncopal episodes. ABDOMEN: Denies nausea, vomiting, diarrhea or constipation. GENITOURINARY: Denies dysuria, hematuria or polyuria. MUSCULOSKELETAL: Denies arthralgias, joint swelling. SKIN: Denies lesions, rashes, moles or unexplained changes. NEUROLOGIC: Denies ataxia, seizures or other focal or motor deficits. HEMATOLOGICAL: Denies unexplained bleeding, bruising or transfusion reactions. PHYSICAL EXAMINATION: VITAL SIGNS: Temperature 99.3, pulse 89, blood pressure 166/77, respirations 16, oxygen saturation 95% on 2 liter nasal cannula. GENERAL: The patient looks to be resting comfortably and not showing any signs of distress acutely. He is alert. HEENT: Tympanic membranes are clear bilaterally. Oropharynx is pink, moist, without any lesions. NECK: Supple, nontender without obvious jugular venous distention, full range of motion noted. CHEST: Lung sounds are failry clear, just diminished significant towards the bases, more so on the right than left. No obvious rhonchi or rales. CARDIOVASCULAR: Regular rate and rhythm without appreciable murmurs, rubs, or gallops. ABDOMEN: Obese, soft, positive bowel sounds. EXTREMITIES: Left below amputation. right with no cyanosis, clubbing or edema. NEUROLOGIC: Cranial nerves II through XII are grossly intact. No obvious motor or sensory deficits. He was alert and oriented x 3. SKIN: Warm, pink and dry. LABORATORY: White count 4,900, hemoglobin 9.7, hematocrit 29.5. RBC indices indicate a microcytic hypochromic anemia with platelet count of 197,000, differential does not show a left shift currently. Coagulation studies showed elevated D-dimer at 1550. PT 14.4 with a 1.45 INR. PTT 28.4. Chemistries on admission showed normal electrolytes. Anion gap was normal. BUN 57, creatinine 3.71, glucose 55 initially. Serum osmolality 296. Lactic acid normal at 1.1 with liver functions showing to be within normal limits. Troponin 0.05. BNP greater than 5,000. Troponin initially was slightly elevated a 0.06 but repeat in 2 hours was 0.05. Albumin 3.1. Urinalysis with Rojas catheter placement showed greater than 300 protein with a moderate amount of blood, trace leukoesterase. RBCs 5 to 10, WBCs 10 to 20. He had 1 to 3 epithelials, 4+ amorphous with 2+ bacteria and moderate amount of mucus. MICROBIOLOGY: Urine culture pending. Nasal swab for Covid was negative. RADIOLOGY: Initially had a chest x-ray which showed stable consolidations in both lung bases, right greater than left with a pleural effusion noted on the right, small one on the left, no pneumothorax. This was followed up with a chest CT which showed moderate to large right pleural effusion and a small moderate left pleural effusion with adjacent atelectasis or consolidation. There was note of a ground glass left upper lobe pulmonary nodule measuring 1.1 cm, recommended followup as an outpatient. ASSESSMENT: 1. Acute on chronic congestive heart failure with associated pleural effusion resulting in some mild respiratory distress with surgical consultation pending. 2. Moderate right-sided pleural effusion. 3. Acute on chronic renal failure. 4. Microcytic hypochromic anemia secondary to chronic renal failure. 5. Urinary tract infection, cultures pending. 6. Diabetes mellitus type 2 on insulin. 7. Hypertension. 8. Chronic obstructive pulmonary disease with some mild exacerbation likely due to underlying pleural effusion with associated atelectasis versus consolidation, unable to fully rule out underlying pneumonia but negative for Covid. 9. History of alcohol abuse. PLAN: The patient is going to be admitted for further evaluation and treatment. I have requested a consultation with Dr. Richardson regarding the pleural effusion as he has had a previous thoracentesis on his last admission. I am not sure if that is resulting in his shortness of breath and just atelectasis versus consolidation with pneumonia, therefore will go ahead and start him on antibiotics with azithromycin and Rocephin. He should be covered empirically with the previous mentioned antibiotics for his underlying urinary tract infection and will await further cultures to further target antibiotic therapy as appropriate. Will go ahead and hold of on any fluid and keep him with fluid restriction, less than 1500 cc per day. I did talk to Dr. Noland. He recommended holding off on any Lasix or any other diuretics and recheck in the morning. He also wants to do a 24-hour total protein in the urine, that has been ordered and started. Will await Dr. Richardson's assessment and plan in regard to the pleural effusion. At this point, he is not showing signs of respiratory distress but he does have difficulty taking a deep breath. He has been significantly worked up on previous admission with ultrasound including abdominal, bladder, echocardiogram. Therefore, we will hold off on any further studies. He has been followed by Dr. Sebastian at [facility]. Hopefully, we can transition him to outpatient management within the next 24-48 hours pending what we find from Dr. Richardson's consultation and his clinical progress. Until then, we will continue to monitor and treat as needed. Also, he will be on insulin sliding scale per protocol. He will also be on Protonix for gastric protection. I will start him on some Align as well since we are going to start him on antibiotics. #[id number] [facility]
[2020-09-20] MEDS: amLODIPine BESYLATE 5 MG TAB PO SCH (12:56)
[2020-09-20] MEDS: CARVEDILOL 12.5 MG TAB PO SCH ×2 (12:57→20:01)
--- NOTE | 2020-09-20 14:39 | CT ---
EXAM DESCRIPTION: Chest w/o Contrast CLINICAL HISTORY: 64 years Male, right plueral effusion TECHNIQUE: This exam was performed according to our departmental dose-optimization program, which includes automated exposure control, adjustment of the mA and/or kV according to patient size and/or use of iterative reconstruction technique. COMPARISON: 05/28/2020, September 20, 2020 FINDINGS: The thyroid gland is unremarkable. No axillary adenopathy. Normal caliber thoracic aorta. Coronary artery calcifications. No pericardial effusion. Cholelithiasis. No evidence of acute process in the visualized upper abdomen. No mediastinal adenopathy. Moderate to large right pleural effusion. Small to moderate left pleural effusion. No pneumothorax. Bibasilar atelectasis/consolidation. Groundglass left upper lobe pulmonary nodule measuring 1.1 cm series 4 image 26. No acute or suspicious osseous abnormality. Scattered degenerative changes present. IMPRESSION: 1. Moderate to large right pleural effusion and a small to moderate left pleural effusion with adjacent atelectasis/consolidation. 2. Groundglass left upper lobe pulmonary nodule measuring 1.1 cm. According to the most recent Fleischner Society Pulmonary Nodule Guidelines ( DOI: http://dx.doi.org/10.1148/radiol.1177935026 ), for a single ground-glass nodule measuring 6 mm or greater, recommend initial follow-up by CT at 6-12 months to confirm persistence; then CT every 2 years until 5 years is recommended. Electronically signed by: Matt Villarreal MD 09/20/2020 2:37 PM [facility]
[2020-09-20] MEDS ORDERED: NITROGLYCERIN 2% 1 GM UD TOP ONE (16:20)
[2020-09-20] MEDS: cefTRIAXone SODIUM 1 GM in SODIUM CHL 0.9% 50ML MIN-BAG+ 50 ML IVPB SCH (16:26)
--- NOTE | 2020-09-20 16:31 | RAD ---
EXAM DESCRIPTION: Chest,1 View CLINICAL HISTORY: 64 years Male, post dranage COMPARISON: Previous study September 20, 2020 TECHNIQUE: AP portable chest. FINDINGS: Heart size is large with centrally prominent pulmonary vascularity. Minimal hazy infiltrate or edema in the right middle lobe and peripheral left lung base. Nodular density over the left lung base thought to be nipple shadow. No nodule was seen in this area on the previous study. A right pleural effusion has been drained since previous exam. No right-sided pneumothorax to suggest a complication. No pulmonary mass or worrisome nodule. Mild right pleural thickening or partly loculated pleural fluid. Slight blunting of the left costophrenic angle consistent with small pleural effusion. Bones are unremarkable. IMPRESSION: Decreased right pleural effusion since previous study. Large heart with prominent vascularity. Electronically signed by: Aníbal Anders MD 09/20/2020 4:[address] [facility]
[2020-09-20] MEDS ORDERED: ALBUMIN 25 GM in PREMIX BOTTLE 2 BOTTLE IVPB ONE (16:37)
[2020-09-20] MEDS ORDERED: ALBUMIN 100 ML IVPB ONE (16:40)
--- NOTE | 2020-09-20 17:26 | OP ---
DATE OF PROCEDURE: 09/20/20 PREOPERATIVE DIAGNOSIS: 1. Right pleural effusion. POSTOPERATIVE DIAGNOSIS: 1. Right pleural effusion. PROCEDURE: 1. Rest chest thoracentesis. SURGEON: Rangel Richardson MD ANESTHESIA: Local. FINDINGS: Approximately 1.3 liters of yellow clear fluid. COMPLICATIONS: None. ESTIMATED BLOOD LOSS: None. INDICATION: This is a gentleman with a history of a pleural effusion. He came in today after experiencing some shortness of breath for a couple of days. X- ray confirmed recurrence of the effusion. We got a CT scan to make sure it was non-loculated and safe to approach in the standard fashion and, indeed it appear so. We consented him. PROCEDURE: We used the thoracentesis in the standard fashion, which went smoothly with no evidence of complications. Post procedure x-ray is pending. #[id number] [facility]
[2020-09-20] MEDS: AZITHROMYCIN IV 500 MG in SODIUM CHLORIDE 0.9% 250ML 250 ML IVPB SCH (17:51)
[2020-09-20] MEDS: INSULIN DETEMIR 100 UNITS/ML PEN SUBCU SCH (18:00)
[2020-09-20] MEDS ORDERED: ENOXAPARIN SODIUM 30 MG/0.3 ML SYG SUBCU ONE (19:01)
[2020-09-20] MEDS: ENOXAPARIN SODIUM 30 MG/0.3 ML SYG SUBCU SCH (20:01)
[2020-09-20] MEDS ORDERED: ONDANSETRON INJ 4 MG/2 ML VIAL IV PRN (22:45)
[2020-09-21] MEDS: PANTOPRAZOLE SODIUM IV 40 MG VIAL IV SCH (06:15)
[2020-09-21] MEDS ORDERED: CLOPIDOGREL 75 MG TAB ONE (06:56)
[2020-09-21] MEDS: INSULIN LISPRO 100 UNITS/ML PEN SUBCU SCH ×4 (06:59→20:52)
--- NOTE | 2020-09-21 08:04 | RAD ---
EXAM DESCRIPTION: Chest,1 View CLINICAL HISTORY: follow-up post thoracentesis COMPARISON: Chest radiograph and chest CT performed yesterday FINDINGS: The cardiac silhouette is slightly enlarged but stable from the prior exam. The bronchovascular markings are indistinct. Moderate size right-sided pleural effusion with overlying atelectasis or consolidation in the right lung base. No pneumothorax or other thoracentesis-related complication. IMPRESSION: No pneumothorax or other thoracentesis-related complication. Cardiomegaly with pulmonary vascular congestion, worse from yesterday. Moderate size right-sided pleural effusion with overlying atelectasis, edema or pneumonia in the right base. Electronically signed by: Eduardo Mederos MD 09/21/2020 8:02 AM [facility]
[2020-09-21] MEDS: CLOPIDOGREL 75 MG TAB PO SCH (08:14)
[2020-09-21] MEDS: amLODIPine BESYLATE 5 MG TAB PO SCH (08:14)
[2020-09-21] MEDS: CARVEDILOL 12.5 MG TAB PO SCH ×2 (08:14→20:39)
[2020-09-21] MEDS ORDERED: NITROGLYCERIN 2% 1 GM UD TOP ONE ×2 (08:28→15:27)
[2020-09-21] MEDS: SODIUM CHLORIDE 0.9% (FLUSH) 10 ML SYG IV SCH ×2 (08:32→20:39)
[2020-09-21] MEDS: NITROGLYCERIN 2% 1 GM UD TOP SCH ×2 (08:32→15:30)
[2020-09-21] MEDS: ALBUTEROL SULFATE 2.5 MG/3 ML VIAL NEB SCH ×4 (09:15→20:57)
[2020-09-21] MEDS: SODIUM CHLORIDE 0.45% 1000ML 1,000 ML IVS PRN (09:57)
[2020-09-21] MEDS: cefTRIAXone SODIUM 1 GM in SODIUM CHL 0.9% 50ML MIN-BAG+ 50 ML IVPB SCH (15:30)
--- NOTE | 2020-09-21 16:29 | PN ---
SUPERVISING PHYSICIAN: Zoran Harrington MD DATE: 09/21/20 SUBJECTIVE: The patient had a thoracentesis done yesterday and had about 1.5 liters pulled off by Dr. Richardson. He reported that his breathing seemed to be a little bit easier. He still has a little bit of shortness of breath and some coughing. Otherwise, he has really not had any other complaints. OBJECTIVE: VITAL SIGNS: Temperature 98.2, pulse 73, blood pressure 157/83, respirations 16, saturation 98% on 2 liters nasal cannula. GENERAL: The patient is resting comfortably in no acute distress. He is alert. CHEST: Lung sounds are fairly clear. It seems like there is some rhonchi heard in the upper large airways, but clears with coughing. He is still having some diminished sounds on the right compared to the left. HEART: Regular rate and rhythm. ABDOMEN: Soft, nontender. Positive bowel sounds. EXTREMITIES: No cyanosis, clubbing or edema. NEUROLOGIC: Alert and oriented times three. LABORATORY: White count 4,300, hemoglobin 9, hematocrit 27.8. Differential is without a left shift. Chemistries show sodium 142, potassium 4.6, chloride 112, BUN elevated at 59, creatinine 3.8. Calcium 8.0. Serum osmolality 297. Blood sugars have been fairly well controlled between 62 and 124. Urinalysis showed 5 to 10 RBCs, 10 to 20 WBCs, 1 to 3 epithelial, 2+ bacteria, 4+ amorphus. His 24 hour urine protein was 7449 with total volume of 1950 in 24 hours and random urine protein 382. MICROBIOLOGY: Urine culture shows no growth at 24 hours. RADIOLOGY: Chest x-ray this morning per radiologic interpretation shows no pneumothorax or other thoracentesis related complication. Cardiomegaly with pulmonary vascular congestion worse from yesterday with moderate sized right sided pleural effusion with underlying atelectasis, edema and pneumonia at the right base. ASSESSMENT: 1. Acute on chronic congestive heart failure with exacerbation, probably due to underlying pleural effusion requiring thoracentesis performed by Dr. Richardson. 2. Right sided pleural effusion, status post thoracentesis, chronic. 3. Acute on chronic renal failure with slight worsening of creatinine, probably due to intravascular dehydration resulting in prerenal azotemia. 4. Microcytic/hypochromic anemia secondary to chronic renal failure. 5. Questionable urinary tract infection with negative cultures currently. 6. Diabetes mellitus, type 2, on insulin. 7. Hypertension. 8. Chronic obstructive pulmonary disease with some mild exacerbation likely due to underlying pleural effusion with associated atelectasis versus consolidation, unable to fully rule out underlying pneumonia but negative for COVID. 9. History of alcohol abuse. PLAN: We will continue to follow the patient with Dr. Richardson in regards to the pleural effusion and the results of thoracentesis. I did talk to Dr. Noland regarding the increasing creatinine and he feels like the patient is probably dry. Therefore, we will give him some low fluids. I will put him on half normal saline without potassium at 80 an hour. He did get 25 grams of albumin yesterday after the thoracentesis. We are still holding off on any diuretics as, again, he is fairly intravascularly dry. He does remain on 1500 cc fluid restriction. The total protein that was completed we can discuss with Dr. Noland tomorrow, but those results at some point need to be sent to Dr. Noland's office for followup when he seems him next week in the office. We will continue wit sliding scale. Hopefully, we will be able to transition him to outpatient management in the next 24 to 48 hours pending his response to fluids overnight. Until that point, we will continue to monitor and treat as needed. [facility][id number] [facility]
[2020-09-21] MEDS: AZITHROMYCIN IV 500 MG in SODIUM CHLORIDE 0.9% 250ML 250 ML IVPB SCH (17:10)
[2020-09-21] MEDS: INSULIN DETEMIR 100 UNITS/ML PEN SUBCU SCH (17:12)
[2020-09-21] MEDS: ENOXAPARIN SODIUM 30 MG/0.3 ML SYG SUBCU SCH (20:38)
[2020-09-22] MEDS: SODIUM CHLORIDE 0.45% 1000ML 1,000 ML IVS PRN ×2 (00:29→20:01)
[2020-09-22] MEDS: PANTOPRAZOLE SODIUM IV 40 MG VIAL IV SCH (06:02)
--- NOTE | 2020-09-22 07:03 | RAD ---
EXAM: XR Chest 1 View 09/22/2020 HISTORY: Pneumonia versus recurring right pleural effusion COMPARISON: Chest 1 view 09/21/2020 TECHNIQUE: Chest 1 view AP portable FINDINGS: Heart size appears mildly enlarged and may be partly due to portable AP technique. Mildly increased/worsened amount of large dense right mid/lower lung/chest opacity. No pneumothorax. Left lung grossly clear. Thoracic spine degenerative changes. IMPRESSION: 1. Mildly increased/worsened amount of large dense right mid/lower lung/chest opacity. 2. Heart size appears mildly enlarged and may be partly due to portable AP technique. Electronically signed by: Les Mariano MD 09/22/2020 7:01 AM [employer] [employer] [facility]
[2020-09-22] MEDS: INSULIN LISPRO 100 UNITS/ML PEN SUBCU SCH ×4 (07:22→21:09)
[2020-09-22] MEDS: CARVEDILOL 12.5 MG TAB PO SCH ×2 (08:39→20:55)
[2020-09-22] MEDS: amLODIPine BESYLATE 5 MG TAB PO SCH (08:39)
[2020-09-22] MEDS: CLOPIDOGREL 75 MG TAB PO SCH (08:39)
[2020-09-22] MEDS: SODIUM CHLORIDE 0.9% (FLUSH) 10 ML SYG IV SCH ×2 (08:57→20:55)
[2020-09-22] MEDS: ALBUTEROL SULFATE 2.5 MG/3 ML VIAL NEB SCH ×4 (09:00→20:38)
[2020-09-22] MEDS: NITROGLYCERIN 2% 1 GM UD TOP SCH ×2 (13:07→13:14)
--- NOTE | 2020-09-22 15:25 | PN ---
DATE: 09/22/20 SUBJECTIVE: Post thoracentesis. Patient is feeling well and not complaining of any additional shortness of breath other than his respiratory issues from Covid but he is not any worse from our thoracentesis the other day. OBJECTIVE: VITAL SIGNS: T-max 98, heart rate 70s, oxygen saturation 97% on nasal cannula at rest. GENERAL: He is currently getting a breathing treatment. Repeat x-ray today, which I did review and compare with prior, shows mildly increased amount of right mid and lower lung opacity, possibly some increase in the fluid but not as bad as it was and symptomatically he is doing well so will continue observing him. #[id number] [facility]
--- NOTE | 2020-09-22 17:01 | PN ---
DATE: 09/22/20 SUPERVISING PHYSICIAN: Zoran Harrington MD SUBJECTIVE: The patient is sitting up in bed, denies shortness of breath, nausea or vomiting. No chest pain. OBJECTIVE: VITAL SIGNS: Temperature 97.7, heart rate 68, blood pressure 154/76, respiratory rate 18, oxygen saturation 97% on 1 liter nasal cannula. RESPIRATORY: Diminished especially on the right side. CARDIAC: Regular rate and rhythm. NEUROLOGIC: He is awake, alert, and oriented x3. LABORATORY: Sodium 137, potassium 4.4, chloride 108, carbon dioxide 10, BUN 57, creatinine 3.94, calcium 7.9. Urine total protein 7,449. Urine total volume is 1,950. Urine random total protein is 382. RADIOLOGY: Chest x-ray: 1. Mildly increased worsened amount of large dense right mid lower lung chest opacity. 2. Heart size appears mildly enlarged and may be partly due to portable AP technique. ASSESSMENT: 1. Acute on chronic congestive heart failure with exacerbation, probably due to underlying pleural effusion requiring thoracentesis performed by Dr. Richardson. 2. Right sided pleural effusion, status post thoracentesis, chronic. 3. Acute on chronic renal failure with slight worsening of creatinine, probably due to intravascular dehydration resulting in prerenal azotemia. 4. Microcytic/hypochromic anemia secondary to chronic renal failure. 5. Questionable urinary tract infection with negative cultures currently. 6. Diabetes mellitus, type 2, on insulin. 7. Hypertension. 8. Chronic obstructive pulmonary disease with some mild exacerbation likely due to underlying pleural effusion with associated atelectasis versus consolidation, unable to fully rule out underlying pneumonia but negative for COVID. 9. History of alcohol abuse. PLAN: We will continue present supportive care. I have stopped his IV fluids and will recheck his labs in the morning. Dr. Noland will need copies of his labs and I will call him tomorrow for further orders. Dr. Richardson is follow;ing his pleural effusion. He continues to have a Rojas and will need to discontinue that as soon as possible. I have ordered bladder training for in the morning. He will have lab and chest x-ray tomorrow. #[id number] [facility]
[2020-09-22] MEDS: cefTRIAXone SODIUM 1 GM in SODIUM CHL 0.9% 50ML MIN-BAG+ 50 ML IVPB SCH (17:07)
[2020-09-22] MEDS: AZITHROMYCIN IV 500 MG in SODIUM CHLORIDE 0.9% 250ML 250 ML IVPB SCH (17:07)
[2020-09-22] MEDS: INSULIN DETEMIR 100 UNITS/ML PEN SUBCU SCH (17:16)
[2020-09-22] MEDS: ENOXAPARIN SODIUM 30 MG/0.3 ML SYG SUBCU SCH (20:55)
[2020-09-23] MEDS: IV SET AND CAP CHANGE INJ INJ SCH (03:16)
[2020-09-23] MEDS: PANTOPRAZOLE SODIUM IV 40 MG VIAL IV SCH (06:23)
[2020-09-23] MEDS: INSULIN LISPRO 100 UNITS/ML PEN SUBCU SCH ×4 (06:56→21:09)
[2020-09-23] MEDS: CARVEDILOL 12.5 MG TAB PO SCH ×2 (08:29→21:01)
[2020-09-23] MEDS: SODIUM CHLORIDE 0.45% 1000ML 1,000 ML IVS PRN ×2 (08:29→22:49)
[2020-09-23] MEDS: amLODIPine BESYLATE 5 MG TAB PO SCH (08:29)
[2020-09-23] MEDS: CLOPIDOGREL 75 MG TAB PO SCH (08:30)
[2020-09-23] MEDS: SODIUM CHLORIDE 0.9% (FLUSH) 10 ML SYG IV SCH ×2 (08:31→21:02)
[2020-09-23] MEDS ORDERED: NITROGLYCERIN 2% 1 GM UD TOP ONE (09:05)
--- NOTE | 2020-09-23 09:28 | RAD ---
TECHNIQUE: Chest,1 View Chest radiograph, AP 1 view. HISTORY: MAIN pleural eff COMPARISON: Chest x-ray September 22, 2020. FINDINGS: Lungs/Pleura: Ill-defined opacity at the lower half of the right lung is unchanged compared to the prior. There may be a lateral slightly increased density at the right lung base. No appreciable pneumothorax. Mildly blunted left costophrenic angle. Mildly prominent bilateral pulmonary markings. Mediastinum, Kisha: Aortic calcifications. Heart: Stable cardiomegaly. Bones: No suspicious osseous lesions. Soft Tissues: Unremarkable. Other: None. IMPRESSION: * Focal right perihilar infiltrate may represent pneumonia. Differential diagnosis includes asymmetrical edema. * Small to moderate right pleural effusion suspected. Small left pleural effusion. * Prominent bilateral pulmonary markings may represent mild congestion or pneumonia. * Overall appearance is similar to prior. Electronically signed by: Russ Simons 09/23/2020 9:26 AM [facility]
[2020-09-23] MEDS: ALBUTEROL SULFATE 2.5 MG/3 ML VIAL NEB SCH ×4 (09:30→21:40)
[2020-09-23] MEDS: NITROGLYCERIN 2% 1 GM UD TOP SCH ×2 (10:26→15:00)
--- NOTE | 2020-09-23 14:05 | PN ---
DATE: 09/23/20 SUPERVISING PHYSICIAN: Zoran Harrington MD SUBJECTIVE: The patient is sitting up in bed, denies shortness of breath, nausea or vomiting. OBJECTIVE: VITAL SIGNS: Temperature 98, heart rate 66, blood pressure 163/85, respiratory rate 20, oxygen saturation 92% on 1 liter nasal cannula. RESPIRATORY: Diminished on the right side. Otherwise, clear to auscultation. CARDIAC: Regular rate and rhythm. NEUROLOGIC: He is awake, alert, and oriented x3. LABORATORY: WBC 3,900, hemoglobin 9.1, hematocrit 27.8. Electrolytes are within normal limits with the exception of his calcium which is low at 7.9. BUN 56, creatinine has slightly improved to 3.65. Final urine culture shows no growth after 48 hours. RADIOLOGY: Chest x-ray shows focal right perihilar infiltrate, may represent pneumonia, differential diagnosis includes asymmetrical edema, small to moderate right pleural effusion, suspected small left pleural effusion, prominent bilateral pulmonary markings may represent mild congestion or pneumonia, overall appearance is similar to prior x-ray. All other labs and films have been reviewed via the EMR. ASSESSMENT: 1. Acute on chronic congestive heart failure with exacerbation, probably due to underlying pleural effusion requiring thoracentesis performed by Dr. Richardson. 2. Right sided pleural effusion, status post thoracentesis, chronic. 3. Acute on chronic renal failure with slight worsening of creatinine, probably due to intravascular dehydration resulting in prerenal azotemia. 4. Microcytic/hypochromic anemia secondary to chronic renal failure. 5. Questionable urinary tract infection with negative cultures currently. 6. Diabetes mellitus, type 2, on insulin. 7. Hypertension. 8. Chronic obstructive pulmonary disease with some mild exacerbation likely due to underlying pleural effusion with associated atelectasis versus consolidation, unable to fully rule out underlying pneumonia but negative for COVID. 9. History of alcohol abuse. PLAN: We will continue present supportive care. I will review the patient's clinical presentation and chart with Dr. Richardson and I will follow his recommendations. I have ordered lab and x-ray for tomorrow. Hopefully, the patient can be discharged tomorrow or the next day. I will also call Dr. Noland with lab results and follow his recommendations as well. [facility][id number] [facility]
[2020-09-23] MEDS: cefTRIAXone SODIUM 1 GM in SODIUM CHL 0.9% 50ML MIN-BAG+ 50 ML IVPB SCH (16:33)
[2020-09-23] MEDS: AZITHROMYCIN IV 500 MG in SODIUM CHLORIDE 0.9% 250ML 250 ML IVPB SCH (17:55)
[2020-09-23] MEDS: INSULIN DETEMIR 100 UNITS/ML PEN SUBCU SCH (17:57)
[2020-09-23] MEDS: ENOXAPARIN SODIUM 30 MG/0.3 ML SYG SUBCU SCH (21:01)
[2020-09-24] MEDS: PANTOPRAZOLE SODIUM IV 40 MG VIAL IV SCH (05:47)
[2020-09-24] MEDS: INSULIN LISPRO 100 UNITS/ML PEN SUBCU SCH ×2 (07:35→14:00)
[2020-09-24] MEDS: ALBUTEROL SULFATE 2.5 MG/3 ML VIAL NEB SCH ×2 (08:14→12:38)
[2020-09-24] MEDS: amLODIPine BESYLATE 5 MG TAB PO SCH (08:15)
[2020-09-24] MEDS: CLOPIDOGREL 75 MG TAB PO SCH (08:15)
[2020-09-24] MEDS: NITROGLYCERIN 2% 1 GM UD TOP SCH (08:15)
[2020-09-24] MEDS: CARVEDILOL 12.5 MG TAB PO SCH (08:15)
[2020-09-24] MEDS ORDERED: FUROSEMIDE INJ 20 MG/2 ML VIAL IV ONE (09:00)
--- NOTE | 2020-09-24 09:00 | PN ---
DATE: 09/23/20 FOLLOWUP AFTER THORACENTESIS SUBJECTIVE: The patient has no new complaints today. OBJECTIVE: He is afebrile. Vital signs are normal. Oxygen saturation 92% on nasal cannula. He is tolerating a diet with adequate urine output. LABORATORY: White count 3, hematocrit 27, platelet count 149. Creatinine 3.6, which is down from 3.9. BMP is otherwise normal. RADIOLOGY: There is little change in the chest x-ray, still evidence of some pleural effusion on the right, but we have taken off almost 1.5 liters. ASSESSMENT: 1. Right pleural effusion post thoracentesis with no evidence of significant recurrence of the effusion. PLAN: We will continue to observe him. #[id number] [facility]
--- NOTE | 2020-09-24 11:14 | RAD ---
EXAM DESCRIPTION: Chest,1 View CLINICAL HISTORY: Pleural effusion COMPARISON: Chest radiograph dated September 23, 2020 TECHNIQUE: One view radiograph of the chest FINDINGS: Mild calcific atherosclerosis of the aortic arch. Cardiac silhouette shows cardiomegaly with central pulmonary vascular congestion. Increased alveolar opacities in the right mid and lower lung zones may represent asymmetric pulmonary edema versus atelectasis. Underlying infiltrate cannot be excluded. Blunted right costophrenic angle compatible with moderate right pleural effusion stable to mildly increased compared to September 23, 2020. Blunted left costophrenic angle compatible with small left pleural effusion. There is no pneumothorax. No acute osseous abnormality. IMPRESSION: 1. Cardiomegaly and central vascular congestion compatible with congestive heart failure. 2. Redemonstration of moderate right pleural effusion, stable to mildly increased compared to September 23, 2020. Small left-sided pleural effusion. 3. Opacities in the right mid and lower lung zones may represent asymmetric pulmonary edema versus atelectasis. Underlying infiltrate cannot be excluded. Electronically signed by: Saman Matthews MD 09/24/2020 11:12 AM [facility]
[2020-09-24] MEDS: SODIUM CHLORIDE 0.9% (FLUSH) 10 ML SYG IV SCH (13:58)
[2020-09-24 15:49] VITALS: BP 127/66; TEMP 97.3
[2020-09-24 16:42] VITALS: O2SAT 91
--- NOTE | 2020-10-01 09:31 | DS ---
SUPERVISING PHYSICIAN: Mukul Tomas MD DISCHARGE DIAGNOSIS: 1. Acute on chronic congestive heart failure with exacerbation, probably due to underlying pleural effusion requiring thoracentesis performed by Dr. Richardson. 2. Right sided pleural effusion, status post thoracentesis, chronic. 3. Acute on chronic renal failure with slight worsening of creatinine, probably due to intravascular dehydration resulting in prerenal azotemia. 4. Microcytic/hypochromic anemia secondary to chronic renal failure. 5. Questionable urinary tract infection with negative cultures. 6. Diabetes mellitus, type 2, on insulin. 7. Hypertension. 8. Chronic obstructive pulmonary disease with some mild exacerbation due to underlying pleural effusion and associated atelectasis versus consolidation, unable to rule out underlying pneumonia but negative for COVID. 9. History of alcohol abuse. HISTORY OF PRESENT ILLNESS: This is a 64-year-old male patient who came to the Emergency Room late complaining of 3 days of increasing shortness of breath. His COVID test was negative. His symptoms are worse when he lays down or with exertion. A chest x-ray showed consolidations in both lung bases, right greater than left, with a moderate sized right pleural effusion. His laboratory studies showed he had a white count of 4,900 without a left shift. His chemistries showed his creatinine was at 3.71 with his baseline creatinine around 2.8. Saturations were about 95% on room air in the Emergency Room. Given his past medical history as well as increasing shortness of breath with pleural effusion and worsening renal function as well as fluid overload, the patient was given 60 mg Lasix in the Emergency Room with very little improvement on his shortness of breath and was admitted to the hospital in stable condition. HOSPITAL COURSE: The patient was admitted and placed the congestive heart failure guidelines. He was treated for pneumonia with azithromycin and Rocephin and covered empirically and would also include the possible urinary tract infection. He was also placed on fluid restrictions. Dr. Noland, his housekeeper cleaning cooking, was contacted and he recommended holding off on any Lasix or any other diuretics and to recheck it in the morning. He also asked for a [address] Richardson was also consulted in regard to the pleural effusion. He has Lovenox for DVT prophylaxis and Protonix for ulcer prophylaxis. He was also placed on sliding scale insulin per protocol. The patient did have a thoracentesis by Dr. Richardson and he pulled about 1.5 liters during the thoracentesis. He was breathing somewhat better after the thoracentesis. His creatinine was slightly elevated. After the thoracentesis, Dr. Noland recommended judicious infusion of fluids. He also received some albumin. He continued on the fluid restrictions. His Lasix was added back to his regimen. His pleural effusion stabilized. He did have Rojas catheter that was placed and was discontinued as appropriate. His vital signs have stabilized. I have made an appointment with Dr. Sebastian for followup. He also has an appointment with Dr. Noland for followup. His pleural effusion has stabilized. He will have a chest x-ray prior to seeing Dr. Sebastian. He will be discharged home today in stable condition. LABORATORY: WBCs ran between 3.9 and 6. Hemoglobin and hematocrit are stable at 9.2 and 27.8. Sodium is stable at 138, potassium 4.5, chloride 108, carbon dioxide 21, BUN 54, creatinine 3.41. Calcium was low at 7.9. Magnesium was stable at 2.5. Liver enzymes were within normal limits. Troponin 0.05. Serum total protein 6.3, albumin 2.8. Urine total protein was 7,449. His random urine total protein was 382. He did have a urinary tract infection. MICROBIOLOGY: His urine culture showed no growth. RADIOLOGY: His final chest x-ray showed 1) Cardiomegaly with central vascular congestion compatible with congestive heart failure. 2) Re-demonstration of moderate right pleural effusion, stable, mildly increased compared to 09/23/20 small left sided pleural effusion. 3) Opacities in the right mid and lower lung zone, may represent asymmetrical pulmonary edema versus atelectasis. Underlying infiltrate cannot be excluded. DISCHARGE PLAN: The patient will be discharged home in stable condition. He is to resume his previous diet and increase his activity as tolerated. He has a followup appointment with Dr. Sebastian, his primary care physician, on 10/02/20 at 1 PM. He also has a followup appointment with Dr. Noland on 10/10/20 at 10 AM. In addition to his routine home medications, he is also to continue the cefdinir and azithromycin. He is to return to the hospital or followup with Dr. Sebastian or Dr. Noland for any problems or complications. DISCHARGE MEDICATION: 1. Carvedilol. 2. Amlodipine. 3. Albuterol. 4. Insulin NovoLog. 5. Levemir insulin. 6. Plavix. 7. Furosemide. 8. Atorvastatin. 9. Potassium chloride. 10. Cefdinir. 11. Azithromycin. [facility][id number] [facility]
== END 2020-09-24 15:00 | disposition home or self-care (01) | DRG 291 ==
LOC: ER 19:35 → MS 09-20 00:29 → OBSVTOIN 09-20 00:29
PROVIDERS: ADMIT Nurse Practitioner Acute Care; ATTEND Nurse Practitioner Acute Care
PROC: 0W993ZZ Drainage of Right Pleural Cavity, Percutaneous Approach (ICD-10-PCS; principal; 2020-09-20)
DX: I13.0 Hypertensive heart and chronic kidney disease with heart failure and stage 1 through stage 4 chronic kidney disease, or unspecified chronic kidney disease (principal); J18.9 Pneumonia, unspecified organism; J90 Pleural effusion, not elsewhere classified; N17.9 Acute kidney failure, unspecified; N39.0 Urinary tract infection, site not specified; J44.1 Chronic obstructive pulmonary disease with (acute) exacerbation; J44.0 Chronic obstructive pulmonary disease with (acute) lower respiratory infection; J98.11 Atelectasis; I50.9 Heart failure, unspecified; E86.0 Dehydration; N18.9 Chronic kidney disease, unspecified; D63.1 Anemia in chronic kidney disease; E11.22 Type 2 diabetes mellitus with diabetic chronic kidney disease; E78.5 Hyperlipidemia, unspecified; K80.20 Calculus of gallbladder without cholecystitis without obstruction; E66.9 Obesity, unspecified; Z89.512 Acquired absence of left leg below knee; Z79.02 Long term (current) use of antithrombotics/antiplatelets; Z79.4 Long term (current) use of insulin; Z79.899 Other long term (current) drug therapy; Z87.891 Personal history of nicotine dependence; Z68.27 Body mass index [BMI] 27.0-27.9, adult